=== PATIENT | male | born 1945 | race Caucasian/White ===

== ENCOUNTER → 2016-04-30 | Outpatient (CLI) | payer MEDICARE ==
--- NOTE | 2016-04-30 12:35 | CT ---
EXAMINATION TYPE: CT angio abdominal aorta wo/w con DATE OF EXAM: 04/30/2016 12:08 PM COMPARISON: Ultrasound 04/15/2016 HISTORY: 70-year-old male with abdominal aortic aneurysm, without rupture TECHNIQUE: Contiguous axial scanning of the abdomen and pelvis is performed without and with IV Contr ast, patient injected with 100 ml mL of Omnipaque 350. Coronal/sagittal MIP reconstructions performed . 3-D reconstructions generated on a dedicated independent workstation. CT DLP: 568.00 mGycm Automated exposure control for dose reduction was used. FINDINGS: The heart is upper limits of normal in size without pericardial effusion. There is a tiny hiatal hernia. Some strandy atelectasis or scarring at the lung bases. Or pleural eff usion. Noncontrast and early arterial phase imaging of the liver, gallbladder, adrenal glands, spleen, and p ancreas show no gross abnormality. There is bilateral nephrolithiasis with 2 calculi on the right measuring up to 3 mm and 2 calculi on the left measuring up to 7 mm. 2.5 cm fluid attenuating lesion upper pole right kidney suggestive of a cyst. There is a 4.8 cm and 4.6 cm cyst in the lower pole and lateral midpole of the left kidney, r espectively. Additional hypodensity anterior upper to mid pole left kidney is too small fractured CT characterization and probably represents an additional cyst. No dilated small bowel, free fluid, or free air. No mesenteric or retroperitoneal lymphadenopathy seen. There is moderate stool within the colon with sigmoid diverticulosis but no pericolonic inflammatory change. Circumferential bladder wall thickening. Prostate gland appears surgically absent with multiple surgi carolina clips in the pelvis. No abnormal fluid collection or lymphadenopathy seen. Bones: Nonspecific sclerotic focus posterior left acetabulum. Additional sclerotic focus medial right acetab ulum. No osseous destructive process. Vasculature: There is ectasia of the lower thoracic aorta at 2.8 cm. Moderate atherosclerotic plaque is present th roughout the visualized lower thoracic aorta and abdominal aorta. Celiac axis and SMA are patent as are the bilateral cobos renal arteries. JEANNA is seen opacified. The upper abdominal aorta is mildly aneurysmal at 3.1 cm measured on coronal series. The abdominal aorta itself is markedly tortuous. It measures borderline ectatic at the level of the r enal arteries at 2.5 cm. There is bilobed fusiform dilatation of the infrarenal abdominal aorta as it swings towards the right . The upper aneurysmal dilatation measures 3.5 cm measured on coronal series. Along the superior aspe ct of this fusiform dilatation along the left lateral aspect, there is a focal area of plaque ulcerat ion measuring 7 mm, coronal image 15. The second fusiform dilatation extends to the bifurcation measuring approximately 10 cm long. The ane urysm measures 4.9 cm measured on coronal series. There is prominent nearly circumferential plaque a nd thrombus. The bifurcation is aneurysmal at 3.7 cm measured on coronal series. Mild atherosclerotic calcifications continue into the tortuous iliac arteries. IMPRESSION: 1. Aneurysmal abdominal aorta. There is mild aneurysm of the upper abdominal aorta (3.1 cm) followed by borderline ectasia at the level of the renal arteries (2.5 cm). The infrarenal abdominal aorta is tortuous and swings to the right. 2. This tortuous segment shows bilobed fusiform aneurysm. The upper aneurysm measures up to 3.5 cm. T he lower aneurysm is larger and extends to the bifurcation spanning 10 cm and measuring up to 4.9 cm. Appropriate clinical follow-up and management recommended. 3. Prominent mural based thrombus and plaque within the lower aneurysmal segment. 4. Bilateral nephrolithiasis measuring up to 7 mm and renal cysts measuring up to 4.8 cm. 5. Sigmoid diverticulosis. 6. Status post prostatectomy and lymph node dissection. Circumferential bladder wall thickening could represent residual hypertrophy, cystitis, or posttreatment changes.
== END | disposition home or self-care (01) ==
LOC: RADCTMAIN 10:29
PROVIDERS: ATTEND Internal Medicine
DX: I71.4 Abdominal aortic aneurysm, without rupture (principal); I77.9 Disorder of arteries and arterioles, unspecified; I77.1 Stricture of artery; N20.0 Calculus of kidney; N28.1 Cyst of kidney, acquired; K57.30 Diverticulosis of large intestine without perforation or abscess without bleeding; N32.89 Other specified disorders of bladder; Z90.79 Acquired absence of other genital organ(s)
CPT/HCPCS: 75635; Q9967

== ENCOUNTER → 2016-12-09 | Outpatient (CLI) | payer MEDICARE ==
[2016-12-09 10:39] LABS: Blood Urea Nitrogen 18 mg/dL (9-20); Non-African American GFR(MDRD) >60 (>60 ml/min/1.73 sqM)
--- NOTE | 2016-12-09 11:39 | CT ---
EXAMINATION TYPE: CT angio abdomen pelvis DATE OF EXAM: 12/09/2016 11:20 AM COMPARISON: 04/30/2016 HISTORY: Follow up scan per patient. Known AAA CT DLP: 612.5 mGycm Automated exposure control for dose reduction was used. TECHNIQUE: Performed with IV Contrast, patient injected with 100 mL of Omnipaque 350. FINDINGS: Bibasilar subsegmental dependent atelectasis is noted. Heart is unremarkable without pericardial effu maribel. There is bilateral nephrolithiasis with the largest left renal calculus in the upper pole measuring a pproximately 8 mm and the largest on the right measuring 2 mm in the upper pole. Additional corticall y-based bilateral renal cysts do not demonstrate enhancement and appears stable from the prior exam. Single hepatic lesion near the dome of the diaphragm on series 6 image 11 is too small to accurately characterize. Gallbladder is unremarkable. No evidence of pneumoperitoneum or free fluid. The adrenal glands, spleen, and pancreas are of normal enhancement and morphology. Small nonenhancing area of focal fat is relating to a lipoma seen of the small bowel inferior to the uncinate process of the pancreas. No adenopathy is seen within the abdom en or pelvis. Sigmoid diverticulosis is seen without pericolonic fat stranding. Surgical clips are seen within the prostatic bed. No gross evidence of pelvic sidewall adenopathy. Sclerotic focus within the posterior right acetabulum is unchanged in comparison the prior exam and most likely relate to a bone island ra ther than metastasis. Similar appearing sclerotic lesion in the left acetabulum is also stable. Erskine us structures appear intact. Ectasia of the descending thoracic aorta is redemonstrated measuring up to 3.2 cm, this appears uncha nged in the interim and differences in measurement are accounted for by differences in measurement te chnique and tortuosity of the aorta. Vasculature: There is minimal ostial narrowing by noncalcific atheromatous plaque of the celiac arter y without poststenotic dilatation. SMA and renal arteries are patent although there is some narrowing of the ostia of the left renal artery from mural plaquing. Symmetric renal enhancement is appreciate d. Again the abdominal aorta is markedly tortuous and at the level of the renal arteries again measures 2.5 cm. Circumferential mural plaquing is noted. Again there is bilobed fusiform aneurysmal dilatatio n of the infrarenal abdominal aorta with a PACS towards the right upper quadrant. The superior portio n measures 3.8 cm in transverse dimension on coronal series extending over approximately 5.8 cm. Ante rior focus of plaque ulceration measures approximately 6 mm. This is stable from the prior. The second portion of the fusiform infrarenal abdominal aortic aneurysm extends over approximately 10 cm measuring up to 4.9 cm. There is circumferential extensive mural plaquing and thrombus. This term inates at the aortoiliac bifurcation and there is no involvement of the iliac arteries. Mild atheroma tous calcifications are seen within the tortuous iliac arteries. IMPRESSION: 1. BILOBED FUSIFORM INFRARENAL ABDOMINAL AORTIC ANEURYSM WITH SLIGHT ENLARGEMENT OF THE SUPERIOR SEGM ENT MEASURING UP TO 3.8 CM (PREVIOUSLY MEASURING UP TO 3.5 CM). THERE IS STABILITY OF THE INFERIOR SE GMENT SPANNING 10 CM AND MEASURING UP TO 4.9 CM WITH EXTENSIVE MURAL PLAQUING, THROMBUS AND SINGLE PE NETRATING ATHEROMATOUS ULCER. 2. STABLE MILD ANEURYSM OF THE UPPER ABDOMINAL AORTA WITH OSTIAL NARROWING OF THE CELIAC AXIS AND LEF T RENAL ARTERY. 3. BILATERAL NEPHROLITHIASIS, SIMPLE RENAL CYSTS, AND DIVERTICULOSIS. 4. STATUS POST PROSTATECTOMY WITH LYMPH NODE DISSECTION. NO GROSS ADENOPATHY IN THE ABDOMEN OR PELVIS .
== END | disposition home or self-care (01) ==
LOC: RADCTMAIN 10:04
PROVIDERS: ATTEND Surgery Vascular Surgery
DX: I71.4 Abdominal aortic aneurysm, without rupture (principal); I70.1 Atherosclerosis of renal artery; I77.4 Celiac artery compression syndrome; Z90.79 Acquired absence of other genital organ(s)
CPT/HCPCS: 82565; 84520; 36415; 74174; Q9967

== ENCOUNTER → 2017-08-17 | Outpatient (CLI) | payer MEDICARE | LOC: LABWHC1 14:10 | PROVIDERS: ATTEND Internal Medicine | DX: R19.7 Diarrhea, unspecified (principal) | CPT/HCPCS: 87045; 87046; 87324 ==

== ENCOUNTER → 2017-10-10 | Outpatient (CLI) | payer MEDICARE ==
--- NOTE | 2017-10-10 23:42 | CT ---
"EXAMINATION TYPE: CT angio abdomen pelvis DATE OF EXAM: 10/10/2017 COMPARISON: 12/09/2016 and 04/30/2016 HISTORY: 72-year-old male Abdominal aortic aneurysm without rupture. TECHNIQUE: Contiguous axial scanning of the abdomen and pelvis following administration of 100 ml Iso beto-370 IV contrast. Coronal/sagittal MIP reconstructions performed. 3-D reconstructions generated o n a dedicated workstation. CT DLP: 1916 mGycm Automated exposure control for dose reduction was used. FINDINGS: Vertebral size without pericardial effusion. Some strandy areas of atelectasis are present in the low er lungs. No pleural effusion. Tiny hiatal hernia. A couple of subcentimeter hypodensities within the liver too small for accurate CT characterization, suggestive of cysts. There is some reflux of contrast into the hepatic veins. Gallbladder, adrenal gl ands, spleen, and pancreas show no gross abnormality. Bilateral renal cysts are redemonstrated measuring up to 2.7 cm right upper pole and 6.0 cm left lowe r pole. 8 mm nonobstructive calculus left upper pole and punctate 2 mm calculus posterior left midpol e. No dilated small bowel, free fluid, or free air. No mesenteric or retroperitoneal lymphadenopathy. There is mild to moderate stool burden. No pericolonic inflammatory change. Sigmoid diverticulosis. Small fat-containing left inguinal hernia. Mild circumferential bladder wall thickening is unchanged. Status post prostatectomy with bilateral lymph node dissections pelvis. No abnormal fluid collection in the pelvis. Vasculature: -2.8 cm ectasia lower descending thoracic aorta. -Mild atherosclerotic narrowing at the origin of the celiac axis. -SMA origin is patent. -Mild narrowing at the origin of the left renal artery. There is cobos bilateral renal arteries. -Borderline aneurysm of the abdominal aorta at the level of the renal arteries at 3.0 cm seems to be relatively stable from 12/09/2016. -Below the level of the renal arteries, the aorta swings towards the right and shows aneurysmal dilat ation of 3.9 cm, stable from 12/09/2016 but increased from 04/30/2016 where it measured 3.5 cm. -A second aneurysm of the distal abdominal aorta extends towards the left and extends to the bifurcat ion spanning approximately 10 cm and measuring 5.8 cm in diameter (coronal series), increased from 5. 3 cm on 12/09/2016 and 4.9 cm on 04/30/2016. Prominent circumferential plaque and thrombus within this portion of the aneurysm. Of note, there is some hyperdensity within the anterior portion of the throm bus, refer to series 5 image 45 and series 11 image 45. -No periaortic fat stranding or drooping aorta sign. Bones: Stable sclerotic foci right acetabulum, left ischium likely bone island. No osseous destructive proce ss. IMPRESSION: 1. BILOBED FUSIFORM INFRARENAL AAA. THE MORE SUPERIOR ANEURYSMAL SEGMENT SWINGS TOWARD THE RIGHT CECE URING 3.9 CM IN DIAMETER, INCREASED FROM 3.5 CM. 2. THE INFERIOR ANEURYSMAL SEGMENT SWINGS BACK TOWARDS THE LEFT EXTENDING 10 CM DOWN TO THE BIFURCATI ON, MEASURING 5.8 CM IN DIAMETER, INCREASED FROM 5.3 CM ON 12/09/2016 AND 4.9 CM ON 04/30/2016. 3. OF NOTE, THE INFERIOR ANEURYSMAL SEGMENT HAS PROMINENT CIRCUMFERENTIAL PLAQUE/THROMBUS AND THERE I S INCREASED HYPERDENSITY WITHIN. SOME INTRAPLAQUE HEMORRHAGE IS DIFFICULT TO EXCLUDE. 4. BORDERLINE ANEURYSM OF THE ABDOMINAL AORTA AT THE LEVEL OF THE RENAL ARTERIES IS RELATIVELY SIMILA R AT 3.0 CM. 5. SIGMOID DIVERTICULOSIS, LEFT-SIDED NEPHROLITHIASIS, AND PRIOR PROSTATECTOMY WITH LYMPH NODE DISSEC TION. Impression points #2 and #3 will be sent via [employer]. A [place] level critical message alert has been initiated for Owen Canales MD via the [employer] 36 0 | Critical Results System on 10/10/2017 11:38 PM. This message alert has been sent to Owen Canales MD via the preferences provided by the clinician for the receipt of Radiology Critical Findings. [facility] [id number]."
== END | disposition home or self-care (01) ==
LOC: RADCTMAIN 14:53
PROVIDERS: ATTEND Surgery Vascular Surgery
DX: I71.4 Abdominal aortic aneurysm, without rupture (principal); K57.30 Diverticulosis of large intestine without perforation or abscess without bleeding; N20.0 Calculus of kidney; Z98.890 Other specified postprocedural states
CPT/HCPCS: 82565; 84520; 36415; 74174; Q9967

== ENCOUNTER → 2017-12-28 | Outpatient (CLI) | payer MEDICARE ==
--- NOTE | 2017-12-28 15:33 | CT ---
EXAMINATION TYPE: CT angio abdomen pelvis DATE OF EXAM: 12/28/2017 COMPARISON: 10/10/2017 HISTORY: post op stent evaluation CT DLP: 791.7 mGycm CONTRAST: CTA abdominal aorta with 3-D reconstruction is performed without Oral Contrast and with IV Contrast, patient injected with 100mL mL of Isovue 370. Contrast CTA of the abdominal aorta was performed from the lung apex through the base of the pelvis. 3-D reconstruction imaging obtained at a separate workstation. CONTRAST CT ABDOMEN AND PELVIS ABDOMINAL AORTA: Interval placement of aortoiliac stent graft. Infrarenal abdominal aortic aneurysm m easures 6.3 cm in greatest transverse dimension by 5.9 cm in AP dimension versus 6.2 x 5.6 cm preproc edure. Small focal areas of hyperdensity are seen on the noncontrast portion of the study within the aneurysm which do not increase on the postcontrast portion of the examination to suggest endoleak. Il iac vessels are of normal caliber. There is left lower renal artery stents. Renal arteries perfuse no rmally. Branch vessels are patent. LIVER/GB- No significant abnormality is seen. PANCREAS- No significant abnormality is seen. SPLEEN- No significant abnormality is seen. ADRENALS- No significant abnormality is seen. KIDNEYS/BLADDER-renal cystic changes are identified. BOWEL- No Significant abnormality GENITAL ORGANS: No gross abnormality seen. LYMPH NODES- No greater than 1cm abdominal or pelvic lymph nodes areappreciated. OSSEOUS STRUCTURES- No significant abnormality is seen. OTHER-left inguinal fat-containing hernia identified. IMPRESSION- 1. Aortoiliac stent graft placement without evidence for endovascular leak at this time.
== END ==
LOC: RADCTMAIN 09:54
PROVIDERS: ATTEND Surgery
DX: Z95.828 Presence of other vascular implants and grafts (principal)
CPT/HCPCS: 82565; 84520; 36415; 74174; Q9967

== ENCOUNTER 2018-01-01 10:47 | Emergency (ER) | payer MEDICARE ==
[2018-01-01 11:03] VITALS: BP 155/87; PULSE 66; RESP 18; TEMP 98.4
--- NOTE | 2018-01-01 11:35 | ED ---
General Adult HPI - General Chief complaint: Back Pain/Injury Stated complaint: Blocked bowel Time Seen by Provider: 01/01/18 11:04 Source: patient, family, RN notes reviewed, old records reviewed Mode of arrival: ambulatory Limitations: no limitations - History of Present Illness Initial comments: Chief complaint and history of present illness this is a 72-year-old male here with family. The patient reports she has not had a bowel movement for 4 days. Patient reports he has had occasional problems such as this in the past and once constipating us has low back discomfort. Denies any other problems. No change in appetite. No trouble urinating. - Related Data Home Medications Medication Instructions Recorded Confirmed Aspirin EC [Ecotrin Low Dose] 81 mg PO DAILY 01/01/18 01/01/18 Atenolol [Tenormin] 12.5 mg PO DAILY 01/01/18 01/01/18 Atorvastatin [Lipitor] 40 mg PO HS 01/01/18 01/01/18 Captopril [Capoten] 12.5 mg PO BID 01/01/18 01/01/18 Clopidogrel [Plavix] 75 mg PO DAILY 01/01/18 01/01/18 Isosorbide Mononitrate [Ismo] 10 mg PO BID 01/01/18 01/01/18 Multivit-Min/FA/Lycopen/Lutein 1 tab PO DAILY@1200 01/01/18 01/01/18 [Centrum Silver Tablet] Sennosides/Docusate Sodium [Kathie 1 tab PO DAILY 01/01/18 01/01/18 Colace] Ubidecarenone [Co Q-10] 100 mg PO DAILY@1200 01/01/18 01/01/18 Allergies Allergy/AdvReac Type Severity Reaction Status Date / Time codeine Allergy Chest Pain Verified 01/01/18 11:25 fentanyl Allergy Rash/Hives Verified 01/01/18 11:25 Review of Systems ROS Statement: Those systems with pertinent positive or pertinent negative responses have been documented in the HPI. Review of systems no other complaints other than constipation for 4 days. All systems were reviewed. Past medical problems significant for prostate cancer, previous NM. Surgeries include having had 2 stents placed and prostate surgery. Patient also had approximate 6 weeks ago aortic stenting of his lower abdominal aortic aneurysm. The patient's family history unknown as the patient is a foster child. Patient has ALLERGIES to codeine and fentanyl. Patient denies alcohol use. Patient does smoke strongly encouraged to stop ROS Other: All systems not noted in ROS Statement are negative. Past Medical History Past Medical History: Cancer, Myocardial Infarction (NM) Additional Past Medical History / Comment(s): prostate cancer, aortic aneurysm repair History of Any Multi-Drug Resistant Organisms: None Reported Past Surgical History: Heart Catheterization With Stent, Prostate Surgery Past Psychological History: No Psychological Hx Reported Smoking Status: Current every day smoker Past Alcohol Use History: None Reported Past Drug Use History: None Reported General Exam - General Exam Comments Initial Comments: General: The patient is awake and alert, in no distress, and does not appear acutely ill. Chief complaint is no bowel movement for 4 days. Vital signs show temperature 98.4 pulse 66 respiratory rate 18 pulse ox 90% room air blood pressure 155/87 Eye: Pupils are equal, round and reactive to light, extra-ocular movements are intact ; there is normal conjunctiva bilaterally. No signs of icterus. Ears, nose, mouth and throat: There are moist mucous membranes. Neck: The neck is supple, there is no tenderness. Cardiovascular: There is a regular rate and rhythm. No murmur, rub or gallop is appreciated. Respiratory: Lungs are clear to auscultation, respirations are non-labored, breath sounds are equal. No wheezes, stridor, rales, or rhonchi. Gastrointestinal: Soft, non-distended, non-tender abdomen without masses or organomegaly noted. There is no rebound or guarding present. No CVA tenderness. Bowel sounds are unremarkable. Small left inguinal hernia, mild bulge with coughing otherwise no discomfort. Back: Low back discomfort. Patient reports she often gets low back pain when he is constipated.. Musculoskeletal: Full range of motion upper and lower extremities. The patient does report that he has some numbness to the fingertips of his left hand. His points out that the surgery for the placement of the stent went through the left arm for an extended period of time and that may have been the cause of the fingertip numbness. Neurological: No focal or lateralizing findings noted none complained of. Other than the fingertips as noted above. Skin: Skin is warm and dry and no rashes or lesions are noted. Psychiatric: Cooperative, appropriate mood & affect, Limitations: no limitations Course Vital Signs 01/01/18 10:58 Temperature 98.4 F Pulse Rate 66 Respiratory 18 Rate Blood Pressure 155/87 O2 Sat by Pulse 98 Oximetry Medical Decision Making - Medical Decision Making Medical decision making; this is a 72-year-old male here with a complaint of constipation for 4 days. X-ray of the abdomen was done and reviewed by radiologist. His findings are; there is no orbital iliac stents graft in place. There has been extensive pelvic surgery. There is a left renal stent in place. Lung bases are clear. Within the abdomen, the abdomen gas pattern is within normal limits. There is no evidence of obstruction or free air. No unusual calcifications are seen. Impression no acute intra-abdominal abnormality. #2 postsurgical change. The patient be given a Therevac suppository. The patient did have a bowel movement pathologic gas states she is feeling much better. The plan for the patient to continue with increase fluids at home use over-the- counter medications including Senokot continue having bowel movements. Advised to follow-up with family physician or return emergency room as needed Disposition Clinical Impression: Constipation by delayed colonic transit Disposition: HOME SELF-CARE Condition: Fair Instructions: Constipation (ED), High Fiber Diet (ED), Fleet Enema (ED) Additional Instructions: Drink adequate fluids. Eat adequate fiber. Use Senokot and [id number] Colace as needed follow-up with family physician return emergency room as needed Is patient prescribed a controlled substance at d/c from ED?: No Referrals: Gerardo Wilson MD [Primary Care Provider] - 1-2 days Time of Disposition: 13:59
--- NOTE | 2018-01-01 12:41 | XR ---
EXAMINATION TYPE: XR abdomen complete w decub , 4 VIEWS DATE OF EXAM ORDERED: 01/01/2018 HISTORY: No BM ?4 days, recent aortic stenting. COMPARISON: None. FINDINGS: There is an orbital iliac stent graft in place. There has been extensive pelvic surgery. T here is a left renal stent in place. The lung bases are clear. Within the abdomen, the abdominal gas pattern is within normal limits. There is no evidence of obstru ction or free air. No unusual calcifications are seen. IMPRESSION: 1. NO ACUTE INTRA-ABDOMINAL ABNORMALITY. 2. POSTSURGICAL CHANGE.
[2018-01-01] MEDS ORDERED: DOCUSATE 283 MG/5 ML ENEMA RECTAL STA (12:55)
== END 2018-01-01 14:09 | disposition home or self-care (01) ==
LOC: EC 10:47
DX: K59.01 Slow transit constipation (principal); K40.90 Unilateral inguinal hernia, without obstruction or gangrene, not specified as recurrent; R20.0 Anesthesia of skin; I25.2 Old myocardial infarction; F17.200 Nicotine dependence, unspecified, uncomplicated; Z88.5 Allergy status to narcotic agent; Z79.02 Long term (current) use of antithrombotics/antiplatelets; Z79.82 Long term (current) use of aspirin; Z79.899 Other long term (current) drug therapy; Z85.46 Personal history of malignant neoplasm of prostate; Z86.79 Personal history of other diseases of the circulatory system; Z95.5 Presence of coronary angioplasty implant and graft; Z98.890 Other specified postprocedural states; Z96.0 Presence of urogenital implants
CPT/HCPCS: 74021; 99284

== ENCOUNTER 2020-02-07 11:40 | Inpatient (IN) | payer MEDICARE ==
[2020-02-07] MEDS ORDERED: HYDROmorphone 0.5 MG/0.5 ML SYRINGE IVP STA ×3 (11:49→14:08)
[2020-02-07] MEDS ORDERED: SODIUM CHLORIDE 0.9% 1,000 ML IV STA (11:49)
[2020-02-07 12:22] LABS: Basophils # (A) 0.1 k/uL (0-0.2); Basophils % (A) 0 %; Eosinophils # (A) 0.2 k/uL (0-0.7); Eosinophils % (A) 1 %; HCT 50.6 % (39.0-53.0); HGB 16.2 gm/dL (13.0-17.5); Lymphocytes # (A) 1.6 k/uL (1.0-4.8); Lymphocytes % (A) 8 %; MCH 31.2 pg (25.0-35.0); MCHC 32.1 g/dL (31.0-37.0); MCV 97.2 fL (80.0-100.0); Monocytes # (A) 0.8 k/uL (0-1.0); Monocytes % (A) 4 %; Neutrophils # (A) 17.6 k/uL (1.3-7.7); Neutrophils % (A) 86 %; Platelet Count 177 k/uL (150-450); WBC 20.5 k/uL (3.8-10.6)
--- NOTE | 2020-02-07 12:24 | ED ---
Abdominal Pain HPI - General Source: patient, RN notes reviewed Mode of arrival: EMS Limitations: no limitations <Carlos Salgado - Last Filed: 02/07/20 14:57> <Mary Yepez - Last Filed: 02/13/20 01:01> - General Chief Complaint: Abdominal Pain Stated Complaint: Abdominal pain Time Seen by Provider: 02/07/20 11:42 - History of Present Illness Initial Comments: 74-year-old male presents emergency Department chief complaint of lower abdominal pain, left groin pain. Patient states that it started around 7 AM th is morning. Patient states that he does have a history of aortic iliac repair on the left by Dr. Gerardo. Patient states that the pain does not radiate to his back. No chest pain or shortness breath he does have a history of hypertension. Denies any prior kidney disease. Patient states that he has no discoloration or symptoms out and his lower leg. Patient states the pain is rated by his groin but denies any testicular pain no dysuria no hematuria no diarrhea no constipation. (Carlos Salgado) - Related Data Home Medications Medication Instructions Recorded Confirmed Atorvastatin [Lipitor] 40 mg PO AC-SUPPER 01/01/18 02/07/20 Isosorbide Mononitrate [Ismo] 10 mg PO AC-BID@0530,1730 01/01/18 02/07/20 Multivit-Min/FA/Lycopen/Lutein 1 tab PO DAILY@1200 01/01/18 02/07/20 [Centrum Silver Tablet] Sennosides/Docusate Sodium [Kathie 1 tab PO DAILY@0530 01/01/18 02/07/20 Colace] Ubidecarenone [Co Q-10] 200 mg PO DAILY@1200 01/01/18 02/07/20 atenoloL [Tenormin] 12.5 mg PO DAILY@0530 01/01/18 02/07/20 Aspirin EC [Ecotrin] 325 mg PO DAILY@0530 02/07/20 02/07/20 Nitroglycerin Sl Tabs [Nitrostat] 0.4 mg SL Q5M PRN 02/07/20 02/07/20 Previous Rx's Medication Instructions Recorded Amoxic-Pot Clav 500-125 mg 1 tab PO Q12HR #10 tab 02/11/20 [Augmentin 500-125 mg] amLODIPine [Norvasc] 10 mg PO DAILY #30 tablet 02/11/20 Allergies Allergy/AdvReac Type Severity Reaction Status Date / Time clopidogrel [From Plavix] Allergy Rash/Hives Verified 02/07/20 15:31 codeine Allergy Chest Pain Verified 02/07/20 15:31 fentanyl Allergy Rash/Hives Verified 02/07/20 15:31 Review of Systems ROS Other: All systems not noted in ROS Statement are negative. <Carlos Salgado - Last Filed: 02/07/20 14:57> ROS Other: All systems not noted in ROS Statement are negative. <Mary Yepez - Last Filed: 02/13/20 01:01> ROS Statement: Those systems with pertinent positive or pertinent negative responses have been documented in the HPI. Past Medical History Past Medical History: Cancer, Myocardial Infarction ([place]) Additional Past Medical History / Comment(s): prostate cancer, aortic aneurysm repair History of Any Multi-Drug Resistant Organisms: None Reported Past Surgical History: Heart Catheterization With Stent, Prostate Surgery Past Psychological History: No Psychological Hx Reported Smoking Status: Current every day smoker Past Alcohol Use History: None Reported Past Drug Use History: None Reported <Carlos Salgado - Last Filed: 02/07/20 14:57> General Exam Limitations: no limitations General appearance: alert, in no apparent distress Head exam: Present: atraumatic, normocephalic, normal inspection Eye exam: Present: normal appearance, PERRL, EOMI. Absent: scleral icterus, conjunctival injection, periorbital swelling ENT exam: Present: normal exam, normal oropharynx, mucous membranes moist Neck exam: Present: normal inspection, full ROM. Absent: tenderness, meningismus, lymphadenopathy Respiratory exam: Present: normal lung sounds bilaterally. Absent: respiratory distress, wheezes, rales, rhonchi, stridor Cardiovascular Exam: Present: regular rate, normal rhythm, normal heart sounds. Absent: systolic murmur, diastolic murmur, rubs, gallop, clicks GI/Abdominal exam: Present: soft, tenderness (Left groin), normal bowel sounds. Absent: distended, guarding, rebound, rigid Skin exam: Present: warm, dry, intact, normal color. Absent: rash <Carlos Salgado - Last Filed: 02/07/20 14:57> Course Vital Signs 02/07/20 02/07/20 02/07/20 11:55 13:06 13:46 Temperature 97.7 F Pulse Rate 64 70 66 Respiratory 18 18 18 Rate Blood Pressure 164/83 164/84 155/78 O2 Sat by Pulse 97 97 95 Oximetry 02/07/20 02/07/20 02/07/20 16:19 19:30 21:11 Temperature Pulse Rate 72 57 L 63 Respiratory 18 18 Rate Blood Pressure 145/58 152/59 135/92 O2 Sat by Pulse 95 94 L 93 L Oximetry 02/07/20 22:55 Temperature 97.7 F Pulse Rate 63 Respiratory 18 Rate Blood Pressure 135/92 O2 Sat by Pulse 93 L Oximetry Medical Decision Making - Lab Data Result diagrams: 02/07/20 12:06 02/07/20 12:00 <Carlos Salgado - Last Filed: 02/07/20 14:57> - Lab Data Result diagrams: 02/12/20 06:11 02/12/20 06:11 <Mary Yepez - Last Filed: 02/13/20 01:01> - Medical Decision Making 74-year-old male presented for left groin pain. There was concern as he informed me of possible aneurysm around his graft. CTA was obtained immediately ordered upon arrival. There does show evidence of a large inguinal hernia concern for incarceration. Patient hernia was attempted to reduce with minimal change in patient's symptoms. There is no definite leak and felt less likely at this point after CT. Pulses lower extremity equal bilaterally. Patient's pain is localized only in the groin. Patient's case discussed with Dr. Covington who recommends the patient to be admitted to medicine with consult to him and vascular surgery. Patient will be kept nothing by mouth, pain medication, antiemetics. Patient was started on antibiotics given leukocytosis. (Carlos Salgado) I was available for consultation in the emergency department. The history and physical exam were done by the midlevel provider. I was consulted for this patients care. I reviewed the case with the midlevel provider and based on their presentation of the patient, I agree with the assessment, medical decision making and plan of care as documented. Chart was dictated using [employer] dictation software. Attempts were made to correct any dictation errors however some typographical errors may persist. Patient was seen during a national state of emergency due to the Covid-19 pandemic. (Mary Yepez) - Lab Data Lab Results 02/07/20 02/07/20 02/07/20 Range/Units 12:00 12:00 12:00 WBC (3.8-10.6) k/uL RBC (4.30-5.90) m/uL Hgb (13.0-17.5) gm/dL Hct (39.0-53.0) % MCV (80.0-100.0) fL MCH (25.0-35.0) pg MCHC (31.0-37.0) g/dL RDW (11.5-15.5) % Plt Count (150-450) k/uL Neutrophils % % Lymphocytes % % Monocytes % % Eosinophils % % Basophils % % Neutrophils # (1.3-7.7) k/uL Lymphocytes # (1.0-4.8) k/uL Monocytes # (0-1.0) k/uL Eosinophils # (0-0.7) k/uL Basophils # (0-0.2) k/uL PT 10.0 (9.0-12.0) sec INR 1.0 (<1.2) APTT 23.0 (22.0-30.0) sec Sodium 138 (137-145) mmol/L Potassium 4.2 (3.5-5.1) mmol/L Chloride 108 H (98-107) mmol/L Carbon Dioxide 25 (22-30) mmol/L Anion Gap 5 mmol/L BUN 21 H (9-20) mg/dL Creatinine 1.26 H (0.66-1.25) mg/dL Est GFR (CKD-EPI)AfAm 65 (>60 ml/min/1.73 sqM) Est GFR (CKD-EPI)NonAf 56 (>60 ml/min/1.73 sqM) Glucose 161 H (74-99) mg/dL Plasma Lactic Acid Topher 2.0 (0.7-2.0) mmol/L Calcium 8.9 (8.4-10.2) mg/dL Total Bilirubin 0.4 (0.2-1.3) mg/dL AST 25 (17-59) U/L ALT 17 (4-49) U/L Alkaline Phosphatase 67 (38-126) U/L Creatine Kinase 71 (55-170) U/L Troponin I (0.000-0.034) ng/mL Total Protein 6.5 (6.3-8.2) g/dL Albumin 3.8 (3.5-5.0) g/dL Amylase 105 (30-110) U/L Lipase 182 (23-300) U/L Urine Color Urine Appearance (Clear) Urine pH (5.0-8.0) Ur Specific Oakes (1.001-1.035) Urine Protein (Negative) Urine Glucose (UA) (Negative) Urine Ketones (Negative) Urine Blood (Negative) Urine Nitrite (Negative) Urine Bilirubin (Negative) Urine Urobilinogen (<2.0) mg/dL Ur Leukocyte Esterase (Negative) Urine RBC (0-5) /hpf Urine WBC (0-5) /hpf Ur Squamous Epith Cells (0-4) /hpf Amorphous Sediment (None) /hpf Blood Type Blood Type Confirm Blood Type Recheck Bld Type Recheck Status Antibody Screen Spec Expiration Date 02/07/20 02/07/20 02/07/20 Range/Units 12:00 12:00 12:05 WBC (3.8-10.6) k/uL RBC (4.30-5.90) m/uL Hgb (13.0-17.5) gm/dL Hct (39.0-53.0) % MCV (80.0-100.0) fL MCH (25.0-35.0) pg MCHC (31.0-37.0) g/dL RDW (11.5-15.5) % Plt Count (150-450) k/uL Neutrophils % % Lymphocytes % % Monocytes % % Eosinophils % % Basophils % % Neutrophils # (1.3-7.7) k/uL Lymphocytes # (1.0-4.8) k/uL Monocytes # (0-1.0) k/uL Eosinophils # (0-0.7) k/uL Basophils # (0-0.2) k/uL PT (9.0-12.0) sec INR (<1.2) APTT (22.0-30.0) sec Sodium (137-145) mmol/L Potassium (3.5-5.1) mmol/L Chloride (98-107) mmol/L Carbon Dioxide (22-30) mmol/L Anion Gap mmol/L BUN (9-20) mg/dL Creatinine (0.66-1.25) mg/dL Est GFR (CKD-EPI)AfAm (>60 ml/min/1.73 sqM) Est GFR (CKD-EPI)NonAf (>60 ml/min/1.73 sqM) Glucose (74-99) mg/dL Plasma Lactic Acid Topher (0.7-2.0) mmol/L Calcium (8.4-10.2) mg/dL Total Bilirubin (0.2-1.3) mg/dL AST (17-59) U/L ALT (4-49) U/L Alkaline Phosphatase (38-126) U/L Creatine Kinase (55-170) U/L Troponin I <0.012 (0.000-0.034) ng/mL Total Protein (6.3-8.2) g/dL Albumin (3.5-5.0) g/dL Amylase (30-110) U/L Lipase (23-300) U/L Urine Color Urine Appearance (Clear) Urine pH (5.0-8.0) Ur Specific Oakes (1.001-1.035) Urine Protein (Negative) Urine Glucose (UA) (Negative) Urine Ketones (Negative) Urine Blood (Negative) Urine Nitrite (Negative) Urine Bilirubin (Negative) Urine Urobilinogen (<2.0) mg/dL Ur Leukocyte Esterase (Negative) Urine RBC (0-5) /hpf Urine WBC (0-5) /hpf Ur Squamous Epith Cells (0-4) /hpf Amorphous Sediment (None) /hpf Blood Type B Positive Blood Type Confirm B Positive Blood Type Recheck No Previous Record Bld Type Recheck Status CABO Indicated Antibody Screen NEGATIVE Spec Expiration Date 02/10/2020 - 229902/07/20 02/07/20 Range/Units 12:06 12:27 WBC 20.5 H (3.8-10.6) k/uL RBC 5.20 (4.30-5.90) m/uL Hgb 16.2 (13.0-17.5) gm/dL Hct 50.6 (39.0-53.0) % MCV 97.2 (80.0-100.0) fL MCH 31.2 (25.0-35.0) pg MCHC 32.1 (31.0-37.0) g/dL RDW 14.0 (11.5-15.5) % Plt Count 177 (150-450) k/uL Neutrophils % 86 % Lymphocytes % 8 % Monocytes % 4 % Eosinophils % 1 % Basophils % 0 % Neutrophils # 17.6 H (1.3-7.7) k/uL Lymphocytes # 1.6 (1.0-4.8) k/uL Monocytes # 0.8 (0-1.0) k/uL Eosinophils # 0.2 (0-0.7) k/uL Basophils # 0.1 (0-0.2) k/uL PT (9.0-12.0) sec INR (<1.2) APTT (22.0-30.0) sec Sodium (137-145) mmol/L Potassium (3.5-5.1) mmol/L Chloride (98-107) mmol/L Carbon Dioxide (22-30) mmol/L Anion Gap mmol/L BUN (9-20) mg/dL Creatinine (0.66-1.25) mg/dL Est GFR (CKD-EPI)AfAm (>60 ml/min/1.73 sqM) Est GFR (CKD-EPI)NonAf (>60 ml/min/1.73 sqM) Glucose (74-99) mg/dL Plasma Lactic Acid Topher (0.7-2.0) mmol/L Calcium (8.4-10.2) mg/dL Total Bilirubin (0.2-1.3) mg/dL AST (17-59) U/L ALT (4-49) U/L Alkaline Phosphatase (38-126) U/L Creatine Kinase (55-170) U/L Troponin I (0.000-0.034) ng/mL Total Protein (6.3-8.2) g/dL Albumin (3.5-5.0) g/dL Amylase (30-110) U/L Lipase (23-300) U/L Urine Color Light Yellow Urine Appearance Cloudy (Clear) Urine pH 7.5 (5.0-8.0) Ur Specific Oakes 1.012 (1.001-1.035) Urine Protein Trace H (Negative) Urine Glucose (UA) Negative (Negative) Urine Ketones Negative (Negative) Urine Blood Negative (Negative) Urine Nitrite Negative (Negative) Urine Bilirubin Negative (Negative) Urine Urobilinogen <2.0 (<2.0) mg/dL Ur Leukocyte Esterase Negative (Negative) Urine RBC 1 (0-5) /hpf Urine WBC 2 (0-5) /hpf Ur Squamous Epith Cells <1 (0-4) /hpf Amorphous Sediment Moderate H (None) /hpf Blood Type Blood Type Confirm Blood Type Recheck Bld Type Recheck Status Antibody Screen Spec Expiration Date Disposition <Carlos Salgado - Last Filed: 02/07/20 14:57> <Mary Yepez - Last Filed: 02/13/20 01:01> Clinical Impression: Left inguinal hernia, Leukocytosis, Intractable pain, Hx of [id number] bypass Disposition: ADMITTED IP TO THIS HOSP Condition: Stable
[2020-02-07 12:32] LABS: Potassium 4.2 mmol/L (3.5-5.1)
[2020-02-07 12:33] LABS: Albumin 3.8 g/dL (3.5-5.0); Calcium 8.9 mg/dL (8.4-10.2); Total Bilirubin 0.4 mg/dL (0.2-1.3); Total Protein 6.5 g/dL (6.3-8.2)
[2020-02-07] MEDS ORDERED: ONDANSETRON 4 MG/2 ML VIAL IVP STA (13:01)
[2020-02-07 13:09] LABS: Amorphous Sediment,Urine Moderate /hpf; Appearance,Urine Cloudy (Clear); Bilirubin,Urine Negative (Negative); Blood,Urine Negative (Negative); Color,Urine Light Yellow; Glucose,Urine (UA) Negative (Negative); Ketones,Urine Negative (Negative); Leukocyte Esterase,Urine Negative (Negative); Nitrite,Urine Negative (Negative); PH, Urine 7.5 (5.0-8.0); Protein,Urine Trace (Negative); RBC,Urine 1 /hpf (0-5); Specific Gravity,Urine 1.012 (1.001-1.035); Squamous Epithelial Cell,Urine <1 /hpf (0-4); Urobilinogen,Urine <2.0 mg/dL (<2.0); WBC,Urine 2 /hpf (0-5)
[2020-02-07] MEDS ORDERED: diphenhydrAMINE 50 MG/ML 1 ML VIAL IVP STA (14:13)
[2020-02-07] MEDS ORDERED: METOCLOPRAMIDE 5 MG/ML 2 ML VIAL IVP STA (14:13)
--- NOTE | 2020-02-07 14:34 | CT ---
EXAMINATION TYPE: CT angio abd aorta w/Runoff DATE OF EXAM: 02/07/2020 COMPARISON: 12/28/2017 HISTORY: 74-year-old male abdominal and groin pain, history of aneurysm repair TECHNIQUE: Contiguous axial scanning of the abdomen and pelvis with bilateral lower extremity runoff performed without and with IV Contrast, patient injected with 100 mL of Isovue 370. Coronal/sagittal MIP reconstructions performed. 3-D reconstructions generated on a dedicated independent workstation. CT DLP: 2291.5 mGycm Automated exposure control for dose reduction was used. FINDINGS: Heart normal size without pericardial effusion. Hazy bibasilar areas of opacity, likely atelectasis. No pleural effusion. 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 Evidence of abdominal biiliac endovascular stent graft repair. This seems to be a severe stenosis at the level of the left renal artery stent. No flow is seen to the left kidney. Left renal cyst measuring 4.9 cm along with nonobstructive 7 mm calculus. 2.8 cm cyst upper pole righ t kidney. Tiny subcentimeter hypodensities in the liver too small for accurate CT characterization, likely tiny cysts. Portal venous system is patent. No biliary ductal dilatation. Gallbladder, adrenal glands, spleen, and pancreas appear within normal limits. No dilated small bowel, free fluid, free air. No mesenteric or retroperitoneal lymphadenopathy. Mild scattered stool. Sigmoid diverticulosis. No pericolonic inflammatory change. Pelvis: Circumferential bladder wall thickening could represent chronic bladder wall hypertrophy, posttreatme nt change, or cystitis. Clinically correlate. Surgical clips within the pelvis, suspect prior prostat ectomy. Interval enlargement of an indirect left inguinal hernia containing fat currently measuring 12.5 x 5. 3 cm and extending to abut the upper margin of the left testicle. There is some mass effect with flat tening of the inguinal ring suggesting possible incarceration. No abnormal inflammation or fluid. VASCULATURE: The [place] sac measures up to 5.9 cm AP by 5.7 cm wide open (not significantly changed from 12/28/2017 where it measured 5.8 cm AP and 5.6 cm wide. However, as compared to 12/28/2017, there has been enlar gement at the right lateral distal landing zone so that the opacified right common iliac artery is bu lging into the [place] sac measuring up to 2.5 cm wide. This is a new finding, refer to coronal image 50 series 702. Unable to exclude a type IB endoleak. Right: Scattered mild atherosclerotic calcifications, and femoral artery. Mild to moderate focal narrowing m id right SFA, axial image 109 of series 601. Popliteal artery is patent as is the trifurcation. There is runoff via the anterior tibial artery. Posterior tibial and peroneal arteries are seen to th e mid leg level. Left: Scattered mild atherosclerotic calcifications distal left SFA. Popliteal artery is patent. Anterior t ibial artery shows runoff into the foot and peroneal artery becomes diminutive at the distal third le g level but is seen to the ankle. There is no visualization of the posterior tibial artery. Bones: Mild degenerative change at the hips. No osseous destructive process. IMPRESSION: 1. COMPARED TO 12/28/2017, THERE IS INCREASING SIZE OF A NOW MODERATE SIZED FAT-CONTAINING LEFT IND IRECT INGUINAL HERNIA MEASURING 12.5 X 5.3 CM WHICH EXTENDS DOWN INTO THE SCROTAL SAC. THERE IS MASS EFFECT ONTO THE INGUINAL RING THAT MAY REFLECT INCARCERATION. NO INFLAMMATORY CHANGES OR FLUID TO SUG GEST STRANGULATION. 2. ABDOMINAL BIILIAC ENDOVASCULAR STENT GRAFT. THE T[place]A SAC IS RELATIVELY SIMILAR IN SIZE AT 5.9 X 5.7 CM (VERSUS 5.8 X 5.6 CM IN 2018). 3. HOWEVER, THERE HAS BEEN SOME ENLARGEMENT ALONG THE RIGHT LATERAL DISTAL LANDING ZONE SO THAT THE O PACIFIED RIGHT COMMON ILIAC ARTERY IS BULGING INTO THE [place] SAC AND NOW DILATED AT 2.5 CM WIDE. THE FINDING IS NEW FROM 2018. UNABLE TO EXCLUDE A TYPE IB ENDOLEAK. 4. A LEFT RENAL ARTERY STENT IS PRESENT. HOWEVER, THERE IS NO LONGER ANY ARTERIAL FLOW BEYOND THE MARIELA NT. FINDINGS SUGGEST A SUBTOTAL TO COMPLETE LEFT RENAL ARTERY OCCLUSION GIVEN THE NONOPACIFIED LEFT K IDNEY. 5. BILATERAL RUNOFF VIA THE ANTERIOR TIBIAL ARTERIES. ON THE LEFT, THERE IS OCCLUSION OF THE POSTERIO R TIBIAL ARTERY AT ITS ORIGIN.
[2020-02-07] MEDS ORDERED: PIPERACILLIN-TAZOBACTAM 3.375 GM in SODIUM CHLORIDE 0.9% 100 ML IVPB STA (14:56)
[2020-02-07] MEDS ORDERED: ONDANSETRON 4 MG/2 ML VIAL IVP PRN (15:09)
[2020-02-07] MEDS ORDERED: NALOXONE 0.4 MG/ML 1 ML VIAL IV PRN (15:09)
[2020-02-07] MEDS: SODIUM CHLORIDE 0.9% 1,000 ML IV SCH (16:19)
--- NOTE | 2020-02-07 17:11 | P.HPIM ---
History of Present Illness H&P Date: 02/07/20 Chief Complaint: Abdominal pain This is a 74-year-old male with past medical history significant for an old left-sided inguinal hernia that presented to the emergency room with worsening abdominal pain and discomfort. Patient said that his symptoms started at 9 AM this morning and is being getting progressively worse. He described his pain as sharp and mostly in the lower and left abdomen. This was associated with nausea and 3 episodes of vomiting of bilious material. Patient reported that he had a normal bowel movement this morning that since then he has been feeling more bloated than is not passing gas. He denies any fevers or chills. No flulike symptoms. No other complaints otherwise. Patient was evaluated in the ER and will be admitted to the hospital for further management of his medical problems noted below. At the time of my evaluation, patient was rating his pain as 4 out of 10. Review of Systems Review of system: 14 points review of systems were obtained and were negative except to what were mentioned in the HPI. Past Medical History Past Medical History: Cancer, Myocardial Infarction ([place]) Additional Past Medical History / Comment(s): prostate cancer, aortic aneurysm repair History of Any Multi-Drug Resistant Organisms: None Reported Past Surgical History: Heart Catheterization With Stent, Prostate Surgery Past Psychological History: No Psychological Hx Reported Smoking Status: Current every day smoker Past Alcohol Use History: None Reported Past Drug Use History: None Reported Medications and Allergies Home Medications Medication Instructions Recorded Confirmed Type Atorvastatin [Lipitor] 40 mg PO AC-SUPPER 01/01/18 02/07/20 History Isosorbide Mononitrate [Ismo] 10 mg PO AC-BID@0530,1730 01/01/18 02/07/20 History Multivit-Min/FA/Lycopen/Lutein 1 tab PO DAILY@1200 01/01/18 02/07/20 History [Centrum Silver Tablet] Sennosides/Docusate Sodium [Kathie 1 tab PO DAILY@0530 01/01/18 02/07/20 History Colace] Ubidecarenone [Co Q-10] 200 mg PO DAILY@1200 01/01/18 02/07/20 History atenoloL [Tenormin] 12.5 mg PO DAILY@0530 01/01/18 02/07/20 History captopriL [Capoten] 25 mg PO BID@0530,2100 01/01/18 02/07/20 History Aspirin EC [Ecotrin] 325 mg PO DAILY@0530 02/07/20 02/07/20 History Nitroglycerin Sl Tabs [Nitrostat] 0.4 mg SL Q5M PRN 02/07/20 02/07/20 History amLODIPine [Norvasc] 5 mg PO AC-SUPPER 02/07/20 02/07/20 History Allergies Allergy/AdvReac Type Severity Reaction Status Date / Time clopidogrel [From Plavix] Allergy Rash/Hives Verified 02/07/20 15:31 codeine Allergy Chest Pain Verified 02/07/20 15:31 fentanyl Allergy Rash/Hives Verified 02/07/20 15:31 Physical Exam Vitals: Vital Signs Temp Pulse Resp BP Pulse Ox 02/07/20 16:19 72 145/58 95 02/07/20 13:46 66 18 155/78 95 02/07/20 13:06 70 18 164/84 97 02/07/20 11:55 97.7 F 64 18 164/83 97 Intake and Output 02/07/20 02/07/20 02/07/20 06:59 14:59 22:59 Other: Weight 72.575 kg General: The patient is awake and alert, in no distress Eye: there is normal conjunctiva bilaterally. Neck: The neck is supple, there is no JVD. Cardiovascular: Normal S1-S2, no S3-S4, no murmurs. Respiratory: Lungs clear to auscultation bilaterally Gastrointestinal: Abdomen is soft, slightly distended with no significant tenderness. There is a reducible left inguinal hernia Musculoskeletal: There is no pedal edema. Neurological:. Speech is normal. Skin: Skin is warm and dry Results CBC & Chem 7: 02/07/20 12:06 02/07/20 12:00 Labs: Abnormal Lab Results - Last 24 Hours (Table) 02/07/20 02/07/20 02/07/20 Range/Units 12:00 12:06 12:27 WBC 20.5 H (3.8-10.6) k/uL Neutrophils # 17.6 H (1.3-7.7) k/uL Chloride 108 H (98-107) mmol/L BUN 21 H (9-20) mg/dL Creatinine 1.26 H (0.66-1.25) mg/dL Glucose 161 H (74-99) mg/dL Urine Protein Trace H (Negative) Amorphous Sediment Moderate H (None) /hpf Assessment and Plan Assessment: This is a 74-year-old male who presented to the emergency room with worsening abdominal pain. Patient was evaluated in the ER and currently admitted to the hospital for further management of his medical problems noted below. 1. Left inguinal hernia, moderate size, with suspected incarceration noted on computed tomography scan of the abdomen. General surgery consulted. Pain control with IV digoxin as needed. Nothing by mouth until seen by surgery. 2. 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 Vascular surgery consulted for further evaluation 3. Essential hypertension: Blood pressure not well controlled. Will resume home medication and continue to monitor closely 4. History of coronary artery disease, continue home regimen 5. DVT prophylaxis with subcu heparin Today, I reviewed his medication list and lab work results. Continue current regimen. IV fluid hydration with normal saline at 75 mL per hour. Appreciate trial consultant's recommendations. The patient is admitted with an anticipated greater than 2 midnight stay for evaluation of the medical problems noted above Discussed with: Patient and nursing staff Anticipated discharge date: To be determined based on clinical course Anticipated discharge place: home A total of 45 minutes was spent on the care of this complex patient more than 50% of the time was spent in counseling and care coordination.
--- NOTE | 2020-02-07 19:08 | P.GSCN ---
History of Present Illness Consult date: 02/07/20 Reason for Consult: Left lower quadrant abdominal pain History of present illness: Patient comes in the hospital earlier today with pain left lower abdomen. Patient describes pain as being crampy and gassy. Began at 9:00. Had episodes of nausea and vomiting. White blood cell count elevated at 20,000. No fevers or chills. No flulike symptoms. CAT scan was performed with IV contrast as a CTA. Patient with history of prior aortic stent graft. Patient does have a endoleak with slight dilation left iliac artery. Vascular surgery following. Pain slightly better at this time. He did have 2 bowel movements today which she thought were normal. Denies rectal bleeding or melena. Did have a very hard large stool several days ago with some rectal discomfort at that time. CAT scan reviewed. Patient has extensive diverticulosis without definite inflammatory changes. No free air is seen. Hernia containing fat is noted. Patient states hernia is chronic and he does not have pain at the hernia. Other findings on CAT scan include rectal wall thickening. No perirectal inflammatory changes however. Review of Systems The patient denies any acute changes in vision or hearing, no dysphagia or odynophagia, no chest pain or shortness of breath, no dysuria or hematuria, no headache, no runny nose, no rectal bleeding or melena, no unexplained weight loss Past Medical History Past Medical History: Cancer, Myocardial Infarction ([place]) Additional Past Medical History / Comment(s): prostate cancer, aortic aneurysm repair History of Any Multi-Drug Resistant Organisms: None Reported Past Surgical History: Heart Catheterization With Stent, Prostate Surgery Past Psychological History: No Psychological Hx Reported Smoking Status: Current every day smoker Past Alcohol Use History: None Reported Past Drug Use History: None Reported Medications and Allergies Home Medications Medication Instructions Recorded Confirmed Type Atorvastatin [Lipitor] 40 mg PO AC-SUPPER 01/01/18 02/07/20 History Isosorbide Mononitrate [Ismo] 10 mg PO AC-BID@0530,1730 01/01/18 02/07/20 History Multivit-Min/FA/Lycopen/Lutein 1 tab PO DAILY@1200 01/01/18 02/07/20 History [Centrum Silver Tablet] Sennosides/Docusate Sodium [Kathie 1 tab PO DAILY@0530 01/01/18 02/07/20 History Colace] Ubidecarenone [Co Q-10] 200 mg PO DAILY@1200 01/01/18 02/07/20 History atenoloL [Tenormin] 12.5 mg PO DAILY@0530 01/01/18 02/07/20 History captopriL [Capoten] 25 mg PO BID@0530,2100 01/01/18 02/07/20 History Aspirin EC [Ecotrin] 325 mg PO DAILY@0530 02/07/20 02/07/20 History Nitroglycerin Sl Tabs [Nitrostat] 0.4 mg SL Q5M PRN 02/07/20 02/07/20 History amLODIPine [Norvasc] 5 mg PO AC-SUPPER 02/07/20 02/07/20 History Allergies Allergy/AdvReac Type Severity Reaction Status Date / Time clopidogrel [From Plavix] Allergy Rash/Hives Verified 02/07/20 15:31 codeine Allergy Chest Pain Verified 02/07/20 15:31 fentanyl Allergy Rash/Hives Verified 02/07/20 15:31 Surgical - Exam Vital Signs Temp Pulse Resp BP Pulse Ox 97.7 F 64 18 164/83 97 02/07/20 11:55 02/07/20 11:55 02/07/20 11:55 02/07/20 11:55 02/07/20 11:55 Physical exam: General: Well-developed, well-nourished HEENT: Normocephalic, sclerae nonicteric Abdomen: Mild diffuse tenderness increased in the lower quadrants left greater than right, nondistended, hernia left groin easily reducible and nontender Extremities: No edema Neuro: Alert and oriented Results - Labs 02/07/20 12:06 02/07/20 12:00 Abnormal Lab Results - Last 24 Hours (Table) 02/07/20 02/07/20 02/07/20 Range/Units 12:00 12:06 12:27 WBC 20.5 H (3.8-10.6) k/uL Neutrophils # 17.6 H (1.3-7.7) k/uL Chloride 108 H (98-107) mmol/L BUN 21 H (9-20) mg/dL Creatinine 1.26 H (0.66-1.25) mg/dL Glucose 161 H (74-99) mg/dL Urine Protein Trace H (Negative) Amorphous Sediment Moderate H (None) /hpf Diabetes panel 02/07/20 Range/Units 12:00 Sodium 138 (137-145) mmol/L Potassium 4.2 (3.5-5.1) mmol/L Chloride 108 H (98-107) mmol/L Carbon Dioxide 25 (22-30) mmol/L BUN 21 H (9-20) mg/dL Creatinine 1.26 H (0.66-1.25) mg/dL Glucose 161 H (74-99) mg/dL Calcium 8.9 (8.4-10.2) mg/dL AST 25 (17-59) U/L ALT 17 (4-49) U/L Alkaline Phosphatase 67 (38-126) U/L Total Protein 6.5 (6.3-8.2) g/dL Albumin 3.8 (3.5-5.0) g/dL Calcium panel 02/07/20 Range/Units 12:00 Calcium 8.9 (8.4-10.2) mg/dL Albumin 3.8 (3.5-5.0) g/dL Pituitary panel 02/07/20 Range/Units 12:00 Sodium 138 (137-145) mmol/L Potassium 4.2 (3.5-5.1) mmol/L Chloride 108 H (98-107) mmol/L Carbon Dioxide 25 (22-30) mmol/L BUN 21 H (9-20) mg/dL Creatinine 1.26 H (0.66-1.25) mg/dL Glucose 161 H (74-99) mg/dL Calcium 8.9 (8.4-10.2) mg/dL Adrenal panel 02/07/20 Range/Units 12:00 Sodium 138 (137-145) mmol/L Potassium 4.2 (3.5-5.1) mmol/L Chloride 108 H (98-107) mmol/L Carbon Dioxide 25 (22-30) mmol/L BUN 21 H (9-20) mg/dL Creatinine 1.26 H (0.66-1.25) mg/dL Glucose 161 H (74-99) mg/dL Calcium 8.9 (8.4-10.2) mg/dL Total Bilirubin 0.4 (0.2-1.3) mg/dL AST 25 (17-59) U/L ALT 17 (4-49) U/L Alkaline Phosphatase 67 (38-126) U/L Total Protein 6.5 (6.3-8.2) g/dL Albumin 3.8 (3.5-5.0) g/dL Assessment and Plan (1) Intractable pain Narrative/Plan: 74-year-old male with abdominal pain. Patient with significant leukocytosis as well. Etiology unclear at this time. No surgical explanation for pain seen on recent CAT scan. We'll continue antibiotics empirically for possible mild diverticulitis or proctitis. Keep nothing by mouth. Recheck abdominal x-rays tomorrow. We'll follow closely. Discussed case with vascular. Current Visit: Yes Status: Acute Code(s): R52 - PAIN, UNSPECIFIED SNOMED Code(s): 90849389
[2020-02-07] MEDS: amLODIPine 5 MG TAB PO SCH (19:31)
[2020-02-07] MEDS: ISOSORBIDE MONONITRATE 10 MG TAB PO SCH (19:31)
[2020-02-07] MEDS: ATORVASTATIN 40 MG TAB PO SCH (19:31)
[2020-02-07] MEDS: SIMETHICONE 80 MG CHEWABLE PO SCH (21:10)
[2020-02-07] MEDS: HEPARIN SODIUM,PORCINE 5,000 UNIT/ML 1 ML VIAL SQ SCH (21:10)
[2020-02-07] MEDS: HYDROmorphone 0.5 MG/0.5 ML SYRINGE IVP PRN (21:13)
[2020-02-07] MEDS: metroNIDAZOLE-NS PMX 500 MG in SALINE 1 100ML.BAG IVPB SCH (23:37)
[2020-02-07] MEDS: PIPERACILLIN-TAZOBACTAM 3.375 GM in SODIUM CHLORIDE 0.9% 100 ML IVPB SCH (23:38)
[2020-02-08] MEDS: HYDROmorphone 0.5 MG/0.5 ML SYRINGE IVP PRN ×4 (00:13→22:51)
[2020-02-08] MEDS: SODIUM CHLORIDE 0.9% 1,000 ML IV SCH ×2 (04:29→16:25)
[2020-02-08 07:18] LABS: Basophils % (A) 0 %; Eosinophils % (A) 0 %; HCT 47.2 % (39.0-53.0); HGB 15.5 gm/dL (13.0-17.5); Lymphocytes # (A) 1.3 k/uL (1.0-4.8); Lymphocytes % (A) 6 %; MCH 31.8 pg (25.0-35.0); MCHC 32.9 g/dL (31.0-37.0); MCV 96.8 fL (80.0-100.0); Mean Platelet Volume 8.1; Monocytes % (A) 5 %; Neutrophils # (A) 18.3 k/uL (1.3-7.7); Neutrophils % (A) 88 %; Platelet Count 142 k/uL (150-450); RBC 4.88 m/uL (4.30-5.90); RDW 14.2 % (11.5-15.5); WBC 20.9 k/uL (3.8-10.6)
[2020-02-08] MEDS: metroNIDAZOLE-NS PMX 500 MG in SALINE 1 100ML.BAG IVPB SCH ×3 (09:39→22:52)
[2020-02-08] MEDS: PIPERACILLIN-TAZOBACTAM 3.375 GM in SODIUM CHLORIDE 0.9% 100 ML IVPB SCH ×3 (09:44→23:59)
[2020-02-08] MEDS: ISOSORBIDE MONONITRATE 10 MG TAB PO SCH ×2 (09:50→16:23)
--- NOTE | 2020-02-08 10:08 | P.PN ---
Subjective Progress Note Date: 02/08/20 Patient told me that he is feeling about the same compared to yesterday. Abdominal pain and discomfort not changed. He had one episode of vomiting this morning. He is not passing gas. Abdominal x-ray done this morning awaiting report. Objective - Vital Signs Vital signs: Vital Signs Temp 98.7 F 02/08/20 08:14 Pulse 51 L 02/08/20 08:14 Resp 14 02/08/20 08:14 BP 161/72 02/08/20 08:14 Pulse Ox 91 L 02/08/20 08:14 Intake & Output 02/07/20 02/08/20 02/08/20 18:59 06:59 18:59 Output Total 325 Balance -325 Weight 72.575 kg Output: Urine 325 - Exam General: The patient is awake and alert, in no distress Eye: there is normal conjunctiva bilaterally. Neck: The neck is supple, there is no JVD. Cardiovascular: Normal S1-S2, no S3-S4, no murmurs. Respiratory: Lungs clear to auscultation bilaterally Gastrointestinal: Abdomen is soft, slightly distended with mild tenderness to palpation throughout the abdomen Musculoskeletal: There is no pedal edema. Neurological:. Speech is normal. Skin: Skin is warm and dry - Labs CBC & Chem 7: 02/08/20 06:51 02/07/20 12:00 Labs: Abnormal Lab Results - Last 24 Hours (Table) 02/07/20 02/07/20 02/07/20 Range/Units 12:00 12:06 12:27 WBC 20.5 H (3.8-10.6) k/uL Plt Count (150-450) k/uL Neutrophils # 17.6 H (1.3-7.7) k/uL Chloride 108 H (98-107) mmol/L BUN 21 H (9-20) mg/dL Creatinine 1.26 H (0.66-1.25) mg/dL Glucose 161 H (74-99) mg/dL Urine Protein Trace H (Negative) Amorphous Sediment Moderate H (None) /hpf 02/08/20 Range/Units 06:51 WBC 20.9 H (3.8-10.6) k/uL Plt Count 142 L (150-450) k/uL Neutrophils # 18.3 H (1.3-7.7) k/uL Chloride (98-107) mmol/L BUN (9-20) mg/dL Creatinine (0.66-1.25) mg/dL Glucose (74-99) mg/dL Urine Protein (Negative) Amorphous Sediment (None) /hpf Assessment and Plan Assessment: This is a 74-year-old male who presented to the emergency room with worsening abdominal pain. Patient was evaluated in the ER and currently admitted to the hospital for further management of his medical problems noted below. 1. Left inguinal hernia, moderate size, with suspected incarceration noted on computed tomography scan of the abdomen. General surgery consulted. Patient started on antibiotic empirically for suspected mild diverticulitis proctitis. Pain control with IV digoxin as needed. Nothing by mouth until seen by surgery. 2. 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 Vascular surgery consulted for further evaluation 3. Essential hypertension: Blood pressure not well controlled may be secondary to pain. Continue home medication and continue to monitor closely 4. History of coronary artery disease, continue home regimen 5. DVT prophylaxis with subcu heparin Today, I reviewed his medication list and lab work results. Continue current regimen. IV fluid hydration with normal saline at 75 mL per hour. Appreciate hr shared services consultant's recommendations.
[2020-02-08] MEDS: HEPARIN SODIUM,PORCINE 5,000 UNIT/ML 1 ML VIAL SQ SCH ×2 (10:31→21:24)
[2020-02-08] MEDS: ASPIRIN 325 MG TAB PO SCH (10:32)
[2020-02-08] MEDS: SIMETHICONE 80 MG CHEWABLE PO SCH ×4 (10:33→21:24)
[2020-02-08 11:18] LABS: Anion Gap 7.1 mmol/L (4.00-12.00); BUN/Creat Ratio 14.5 Ratio (12.00-20.00); Calcium 9.1 mg/dL (8.7-10.3); Carbon Dioxide 23.9 mmol/L (21.6-31.8); Non-African American GFR(CKD) 31.9 (60.0-200.0); Potassium 4.5 mmol/L (3.5-5.5)
--- NOTE | 2020-02-08 11:47 | XR ---
EXAMINATION TYPE: XR abdomen 2V DATE OF EXAM: 02/08/2020 7:30 AM CLINICAL HISTORY: Left lower quadrant abdominal pain. Nausea and vomiting. TECHNIQUE: Supine and upright images of the abdomen and pelvis were obtained COMPARISON: Abdominal radiograph 01/11/2018. CTA abdominal aorta 02/07/2020. FINDINGS: Redemonstrated aorto by iliac stent grafting and left renal stent. Tortuous course of the a bdominal aorta. Pelvic surgical clips. Excreted contrast within the urinary bladder status post CTA 1 . Scattered gas is seen in non-distended small bowel loops. Gas and fecal material is seen i n non-distended colon. There is no visceromegaly, pneumoperitoneum, or abnormal calcification appreci ated. The lung bases are clear. The osseous structures are intact. IMPRESSION: 1. Nonspecific bowel gas pattern. 2. No pneumoperitoneum.
--- NOTE | 2020-02-08 11:49 | P.GSCN ---
History of Present Illness Consult date: 02/08/20 Reason for Consult: Aortic iliac graft History of present illness: This is a 74-year-old male who presented to the emergency department with lower abdominal pain, and left groin pain which began yesterday morning. The patient has a history of a renal abdominal aortic aneurysm with left iliac stent by Dr. Gerardo in 2018. She has a past medical history that includes coronary artery disease and prostate cancer. He is a current every day smoker. He states today the pain is across his lower abdomen and now radiating to his right side and right flank. He states he's had nausea and vomiting, had 2 episodes of vomiting today. His last bowel movement was yesterday, he is passing no flatus today. He denies pain down bilateral lower extremities. He takes a low-dose aspirin, atorvastatin and Plavix daily. CT angiogram of abdominal aorta with runoff impression states as compared to 12/28/2017 there is increasing size of now moderate sized activity left indirect inguinal hernia measuring 12.5 x 5.3 cm which extends down into the scrotal sac. There is mass effect onto the inguinal ring that may reflect incarceration. No inflammatory changes or fluid to suggest or angulation. Abdominal by iliac endovascular stent graft. The chickaloon sac is relatively similar in size at 5.9x 5.7 cm. However there has been some enlargement along the right lateral distal landing zone so that the opacified right common iliac artery is bulging into the chickaloon sac and now dilated at 2.5 cm wide. The finding is new from 2018 unable to exclude a type IB endoleak. A left renal artery stent is present, however there is no longer any arterial flow beyond the stent. 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 There is bilateral runoff via the anterior tibial arteries, on the left there is occlusion of the posterior tibial artery at its origin. Review of Systems 14 point review systems was completed all pertinent positives and negatives as stated in the HPI. Past Medical History Past Medical History: Cancer, Myocardial Infarction ([place]) Additional Past Medical History / Comment(s): prostate cancer, aortic aneurysm repair Last Myocardial Infarction Date:: 2007 History of Any Multi-Drug Resistant Organisms: None Reported Past Surgical History: Heart Catheterization With Stent, Prostate Surgery Past Anesthesia/Blood Transfusion Reactions: Postoperative Nausea & Vomiting (PONV) Date of Last Stent Placement:: 2007 Past Psychological History: No Psychological Hx Reported Smoking Status: Current every day smoker Past Alcohol Use History: None Reported Past Drug Use History: None Reported Medications and Allergies Home Medications Medication Instructions Recorded Confirmed Type Atorvastatin [Lipitor] 40 mg PO AC-SUPPER 01/01/18 02/07/20 History Isosorbide Mononitrate [Ismo] 10 mg PO AC-BID@0530,1730 01/01/18 02/07/20 History Multivit-Min/FA/Lycopen/Lutein 1 tab PO DAILY@1200 01/01/18 02/07/20 History [Centrum Silver Tablet] Sennosides/Docusate Sodium [Kathie 1 tab PO DAILY@0530 01/01/18 02/07/20 History Colace] Ubidecarenone [Co Q-10] 200 mg PO DAILY@1200 01/01/18 02/07/20 History atenoloL [Tenormin] 12.5 mg PO DAILY@0530 01/01/18 02/07/20 History captopriL [Capoten] 25 mg PO BID@0530,2100 01/01/18 02/07/20 History Aspirin EC [Ecotrin] 325 mg PO DAILY@0530 02/07/20 02/07/20 History Nitroglycerin Sl Tabs [Nitrostat] 0.4 mg SL Q5M PRN 02/07/20 02/07/20 History amLODIPine [Norvasc] 5 mg PO AC-SUPPER 02/07/20 02/07/20 History Allergies Allergy/AdvReac Type Severity Reaction Status Date / Time clopidogrel [From Plavix] Allergy Rash/Hives Verified 02/07/20 15:31 codeine Allergy Chest Pain Verified 02/07/20 15:31 fentanyl Allergy Rash/Hives Verified 02/07/20 15:31 Surgical - Exam Vital Signs Temp Pulse Resp BP Pulse Ox 97.7 F 64 18 164/83 97 02/07/20 11:55 02/07/20 11:55 02/07/20 11:55 02/07/20 11:55 02/07/20 11:55 General appearance: The patient is alert, oriented, in no acute distress. HET: Head is normocephalic and atraumatic. Neck: Supple without lymphadenopathy. Trachea midline. Heart: S1 S2. Regular rate and rhythm. Lungs: No crackles or wheezes are heard. Abdomen: Soft, tenderness to palpation along the lower abdomen, nondistended with bowel sounds. Extremities: Normal skin color and turgor. He has scaling and old sores on bilateral lower extremities. No cyanosis, rash, ulceration, clubbing, or edema. Radial 2/4 bilaterally. Bilateral palpable posterior tibialis and dorsalis pedis pulses. Capillary refill less than 5 seconds bilaterally. Full motion and sensorimotor intact. Neurological: No focal deficits. Strength and sensation are grossly intact. Results CT angiogram of abdominal aorta with runoff impression states as compared to 12/28/2017 there is increasing size of now moderate sized activity left indirect inguinal hernia measuring 12.5 x 5.3 cm which extends down into the scrotal sac. There is mass effect onto the inguinal ring that may reflect incarceration. No inflammatory changes or fluid to suggest or angulation. Abdominal by iliac endovascular stent graft. The chickaloon sac is relatively similar in size at 5.9x 5.7 cm. However there has been some enlargement along the right lateral distal landing zone so that the opacified right common iliac artery is bulging into the chickaloon sac and now dilated at 2.5 cm wide. The finding is new from 2018 unable to exclude a type IB endoleak. A left renal artery stent is present, however there is no longer any arterial flow beyond the stent. 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 There is bilateral runoff via the anterior tibial arteries, on the left there is occlusion of the posterior tibial artery at its origin. - Labs 02/08/20 06:51 02/08/20 06:51 Abnormal Lab Results - Last 24 Hours (Table) 02/07/20 02/07/20 02/07/20 Range/Units 12:00 12:06 12:27 WBC 20.5 H (3.8-10.6) k/uL Plt Count (150-450) k/uL Neutrophils # 17.6 H (1.3-7.7) k/uL Chloride 108 H (98-107) mmol/L BUN 21 H (9-20) mg/dL Creatinine 1.26 H (0.66-1.25) mg/dL Glucose 161 H (74-99) mg/dL Urine Protein Trace H (Negative) Amorphous Sediment Moderate H (None) /hpf 02/08/20 Range/Units 06:51 WBC 20.9 H (3.8-10.6) k/uL Plt Count 142 L (150-450) k/uL Neutrophils # 18.3 H (1.3-7.7) k/uL Chloride (98-107) mmol/L BUN (9-20) mg/dL Creatinine (0.66-1.25) mg/dL Glucose (74-99) mg/dL Urine Protein (Negative) Amorphous Sediment (None) /hpf Diabetes panel 02/07/20 Range/Units 12:00 Sodium 138 (137-145) mmol/L Potassium 4.2 (3.5-5.1) mmol/L Chloride 108 H (98-107) mmol/L Carbon Dioxide 25 (22-30) mmol/L BUN 21 H (9-20) mg/dL Creatinine 1.26 H (0.66-1.25) mg/dL Glucose 161 H (74-99) mg/dL Calcium 8.9 (8.4-10.2) mg/dL AST 25 (17-59) U/L ALT 17 (4-49) U/L Alkaline Phosphatase 67 (38-126) U/L Total Protein 6.5 (6.3-8.2) g/dL Albumin 3.8 (3.5-5.0) g/dL Calcium panel 02/07/20 Range/Units 12:00 Calcium 8.9 (8.4-10.2) mg/dL Albumin 3.8 (3.5-5.0) g/dL Pituitary panel 02/07/20 Range/Units 12:00 Sodium 138 (137-145) mmol/L Potassium 4.2 (3.5-5.1) mmol/L Chloride 108 H (98-107) mmol/L Carbon Dioxide 25 (22-30) mmol/L BUN 21 H (9-20) mg/dL Creatinine 1.26 H (0.66-1.25) mg/dL Glucose 161 H (74-99) mg/dL Calcium 8.9 (8.4-10.2) mg/dL Adrenal panel 02/07/20 Range/Units 12:00 Sodium 138 (137-145) mmol/L Potassium 4.2 (3.5-5.1) mmol/L Chloride 108 H (98-107) mmol/L Carbon Dioxide 25 (22-30) mmol/L BUN 21 H (9-20) mg/dL Creatinine 1.26 H (0.66-1.25) mg/dL Glucose 161 H (74-99) mg/dL Calcium 8.9 (8.4-10.2) mg/dL Total Bilirubin 0.4 (0.2-1.3) mg/dL AST 25 (17-59) U/L ALT 17 (4-49) U/L Alkaline Phosphatase 67 (38-126) U/L Total Protein 6.5 (6.3-8.2) g/dL Albumin 3.8 (3.5-5.0) g/dL Assessment and Plan Assessment: 1. Abdominal pain 2. Prior history of infrarenal abdominal aortic aneurysm status post left renal artery stent 2017 3. Left renal artery occlusion 4. Coronary artery disease Plan: Dr. Gerardo reviewed the CT angiogram. Dr. Martins examined the patient and reviewed CT angiogram. It is unlikely the patient's pain is related to his aortic iliac graft. At this time there is no emergent need for any vascular surgical intervention. We will sign off at this time, patient is instructed to follow-up as an outpatient with Dr. Gerardo. Thank you for this consultation and allowing us take part in the plan of care of your patient during his hospital stay. The impression and plan of care has been dictated as directed. Dr. Bernardo I performed a history and examination of this patient, discussed the same with the dictator. I agree with the dictator's note ,documented as a scribe. Any additional findings or plans will be noted.
--- NOTE | 2020-02-08 13:18 | P.PN ---
Subjective Progress Note Date: 02/08/20 Principal diagnosis: Abdominal pain Patient seen at the bedside. He is complaining of less discomfort than yesterday. He did have an episode of vomiting earlier today. No flatus or bowel movement. X-ray showed no evidence of bowel obstruction or pneumoperitoneum. Says his pain has radiated around the left flank to the left back. Does feel somewhat like a kidney stone he has passed before. White blood cell count remains elevated at 20. He is afebrile. No tachycardia. Creatinine 1 from 1.2-2.0. Urinalysis clear. Objective - Vital Signs Vital signs: Vital Signs Temp 98.7 F 02/08/20 08:14 Pulse 51 L 02/08/20 08:14 Resp 14 02/08/20 08:14 BP 161/72 02/08/20 08:14 Pulse Ox 91 L 02/08/20 08:14 Intake & Output 02/07/20 02/08/20 02/08/20 18:59 06:59 18:59 Output Total 325 Balance -325 Weight 72.575 kg Output: Urine 325 - Exam Abdomen: Soft, mild diffuse tenderness increased in the left lower abdomen and left flank, no rebound or guarding - Labs CBC & Chem 7: 02/08/20 06:51 02/08/20 06:51 Labs: Abnormal Lab Results - Last 24 Hours (Table) 02/08/20 02/08/20 Range/Units 06:51 06:51 WBC 20.9 H (3.8-10.6) k/uL Plt Count 142 L (150-450) k/uL Neutrophils # 18.3 H (1.3-7.7) k/uL BUN 29.0 H (9.0-27.0) mg/dL Creatinine 2.0 H (0.6-1.5) mg/dL Est GFR (CKD-EPI)AfAm 37.0 L (60.0-200.0) Est GFR (CKD-EPI)NonAf 31.9 L (60.0-200.0) Glucose 135 H (70-110) mg/dL Assessment and Plan (1) Intractable pain Narrative/Plan: Patient slightly better today. Continue empiric antibiotics for possible diverticulitis. Given the change in symptoms and the increased creatinine with CTA findings of left renal artery occlusion we'll consult urology for second opinion. Continue nothing by mouth for now. We'll follow closely. Current Visit: Yes Status: Acute Code(s): R52 - PAIN, UNSPECIFIED SNOMED Code(s): 08825073
[2020-02-08] MEDS: ATORVASTATIN 40 MG TAB PO SCH (16:24)
[2020-02-08] MEDS: amLODIPine 5 MG TAB PO SCH (16:24)
--- NOTE | 2020-02-08 20:15 | P.GSCN ---
History of Present Illness Consult date: 02/08/20 Reason for Consult: Left sided abdominal pain, History of present illness: Mr Carlson is a 74 yo male who is admitted with left lower lower abdominal pain. He indicates his pain is left lower abdomen and some radiation in lower back and flank. Denies any gross hematuria or dysuria. 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 . Vascular surgery is following the patient . CT also showed a 7 mm non-obs tructive renal stone, of note he does have hx of kidney stones. Review of Systems - Constitutional Denies fever, Denies weight loss - Cardiovascular Denies chest pain, Denies shortness of breath - Respiratory Denies cough, Denies 7 - Gastrointestinal Reports abdominal pain, Reports constipation - Genitourinary Reports flank pain, Reports kidney stones, Denies hematuria - Neurological Denies headaches, Denies syncope Past Medical History Past Medical History: Cancer, Myocardial Infarction ([place]) Additional Past Medical History / Comment(s): prostate cancer, aortic aneurysm repair Last Myocardial Infarction Date:: 2007 History of Any Multi-Drug Resistant Organisms: None Reported Past Surgical History: Heart Catheterization With Stent, Prostate Surgery Past Anesthesia/Blood Transfusion Reactions: Postoperative Nausea & Vomiting (PONV) Date of Last Stent Placement:: 2007 Past Psychological History: No Psychological Hx Reported Smoking Status: Current every day smoker Past Alcohol Use History: None Reported Past Drug Use History: None Reported Medications and Allergies Home Medications Medication Instructions Recorded Confirmed Type Atorvastatin [Lipitor] 40 mg PO AC-SUPPER 01/01/18 02/07/20 History Isosorbide Mononitrate [Ismo] 10 mg PO AC-BID@0530,1730 01/01/18 02/07/20 History Multivit-Min/FA/Lycopen/Lutein 1 tab PO DAILY@1200 01/01/18 02/07/20 History [Centrum Silver Tablet] Sennosides/Docusate Sodium [Kathie 1 tab PO DAILY@0530 01/01/18 02/07/20 History Colace] Ubidecarenone [Co Q-10] 200 mg PO DAILY@1200 01/01/18 02/07/20 History atenoloL [Tenormin] 12.5 mg PO DAILY@0530 01/01/18 02/07/20 History captopriL [Capoten] 25 mg PO BID@0530,2100 01/01/18 02/07/20 History Aspirin EC [Ecotrin] 325 mg PO DAILY@0530 02/07/20 02/07/20 History Nitroglycerin Sl Tabs [Nitrostat] 0.4 mg SL Q5M PRN 02/07/20 02/07/20 History amLODIPine [Norvasc] 5 mg PO AC-SUPPER 02/07/20 02/07/20 History Allergies Allergy/AdvReac Type Severity Reaction Status Date / Time clopidogrel [From Plavix] Allergy Rash/Hives Verified 02/07/20 15:31 codeine Allergy Chest Pain Verified 02/07/20 15:31 fentanyl Allergy Rash/Hives Verified 02/07/20 15:31 Surgical - Exam Vital Signs Temp Pulse Resp BP Pulse Ox 97.7 F 64 18 164/83 97 02/07/20 11:55 02/07/20 11:55 02/07/20 11:55 02/07/20 11:55 02/07/20 11:55 - General well developed, well nourished, no distress, moderate pain - Eyes PERRL, normal ocular movement - Respiratory normal expansion, normal respiratory effort - Abdomen Abdomen: soft, tender - Psychiatric oriented to time, oriented to person, oriented to place, speech is normal Results - Labs 02/08/20 06:51 02/08/20 06:51 Abnormal Lab Results - Last 24 Hours (Table) 02/08/20 02/08/20 Range/Units 06:51 06:51 WBC 20.9 H (3.8-10.6) k/uL Plt Count 142 L (150-450) k/uL Neutrophils # 18.3 H (1.3-7.7) k/uL BUN 29.0 H (9.0-27.0) mg/dL Creatinine 2.0 H (0.6-1.5) mg/dL Est GFR (CKD-EPI)AfAm 37.0 L (60.0-200.0) Est GFR (CKD-EPI)NonAf 31.9 L (60.0-200.0) Glucose 135 H (70-110) mg/dL Microbiology - Last 24 Hours (Table) 02/07/20 15:16 Blood Culture - Preliminary Blood No Growth after 24 hours Diabetes panel 02/08/20 Range/Units 06:51 Sodium 140 (135-145) mmol/L Potassium 4.5 (3.5-5.5) mmol/L Chloride 109 (96-109) mmol/L Carbon Dioxide 23.9 (21.6-31.8) mmol/L BUN 29.0 H (9.0-27.0) mg/dL Creatinine 2.0 H (0.6-1.5) mg/dL Glucose 135 H (70-110) mg/dL Calcium 9.1 (8.7-10.3) mg/dL Calcium panel 02/08/20 Range/Units 06:51 Calcium 9.1 (8.7-10.3) mg/dL Pituitary panel 02/08/20 Range/Units 06:51 Sodium 140 (135-145) mmol/L Potassium 4.5 (3.5-5.5) mmol/L Chloride 109 (96-109) mmol/L Carbon Dioxide 23.9 (21.6-31.8) mmol/L BUN 29.0 H (9.0-27.0) mg/dL Creatinine 2.0 H (0.6-1.5) mg/dL Glucose 135 H (70-110) mg/dL Calcium 9.1 (8.7-10.3) mg/dL Adrenal panel 02/08/20 Range/Units 06:51 Sodium 140 (135-145) mmol/L Potassium 4.5 (3.5-5.5) mmol/L Chloride 109 (96-109) mmol/L Carbon Dioxide 23.9 (21.6-31.8) mmol/L BUN 29.0 H (9.0-27.0) mg/dL Creatinine 2.0 H (0.6-1.5) mg/dL Glucose 135 H (70-110) mg/dL Calcium 9.1 (8.7-10.3) mg/dL Assessment and Plan Assessment: Mr Carlson is a 74 yo male who is admitted with left lower lower abdominal pain. 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 . Vascular surgery is following the patient . CT also showed a 7 mm non-obstructive renal stone, Plan: -Pain is more LLQ abdominal pain than flank pain. 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 -Patient non obstructive stone unlikely to be cause of pain
[2020-02-09] MEDS: ASPIRIN 325 MG TAB PO SCH (05:48)
[2020-02-09] MEDS: ISOSORBIDE MONONITRATE 10 MG TAB PO SCH ×2 (05:48→17:00)
[2020-02-09] MEDS: HYDROmorphone 0.5 MG/0.5 ML SYRINGE IVP PRN (05:51)
[2020-02-09 06:54] LABS: HCT 47.5 % (39.0-53.0); HGB 15.5 gm/dL (13.0-17.5); MCH 31.8 pg (25.0-35.0); MCHC 32.7 g/dL (31.0-37.0); MCV 97.4 fL (80.0-100.0); Mean Platelet Volume 8.5; Platelet Count 145 k/uL (150-450); RBC 4.88 m/uL (4.30-5.90); RDW 14.1 % (11.5-15.5); WBC 33.9 k/uL (3.8-10.6)
[2020-02-09 07:19] LABS: Metamyelocytes # (M) 0.68 k/uL (0); Metamyelocytes % 2 %; Monocytes # (M) 2.03 k/uL (0-1.0); Neutrophils # (M) 29.83 k/uL (1.3-7.7); Neutrophils % (M) 88 %; Nucleated Red Blood Cells 0 /100 WBC (0-0); Total Cells Counted 200
[2020-02-09 07:20] LABS: Large Platelets Present
[2020-02-09] MEDS: SIMETHICONE 80 MG CHEWABLE PO SCH ×4 (07:50→22:14)
[2020-02-09] MEDS: metroNIDAZOLE-NS PMX 500 MG in SALINE 1 100ML.BAG IVPB SCH ×3 (07:50→23:08)
[2020-02-09] MEDS: SODIUM CHLORIDE 0.9% 1,000 ML IV SCH ×2 (07:51→22:14)
[2020-02-09] MEDS: PIPERACILLIN-TAZOBACTAM 3.375 GM in SODIUM CHLORIDE 0.9% 100 ML IVPB SCH ×3 (07:51→23:07)
[2020-02-09] MEDS: HEPARIN SODIUM,PORCINE 5,000 UNIT/ML 1 ML VIAL SQ SCH ×2 (07:51→22:14)
[2020-02-09 09:15] LABS: Anion Gap 5.6 mmol/L (4.00-12.00); BUN/Creat Ratio 22.22 Ratio (12.00-20.00); Calcium 8.6 mg/dL (8.7-10.3); Carbon Dioxide 23.4 mmol/L (21.6-31.8); Non-African American GFR(CKD) 36.3 (60.0-200.0); Potassium 4.5 mmol/L (3.5-5.5)
--- NOTE | 2020-02-09 10:46 | P.PN ---
Subjective Progress Note Date: 02/09/20 Patient is feeling slightly better today. His only reporting pain when he moves around or he get up. He said that he is not passing gas as of yet. No vomiting today. Objective - Vital Signs Vital signs: Vital Signs Temp 98.7 F 02/09/20 07:00 Pulse 66 02/09/20 07:00 Resp 16 02/09/20 07:00 BP 174/85 02/09/20 07:00 Pulse Ox 90 L 02/09/20 07:00 Intake & Output 02/08/20 02/09/20 02/09/20 18:59 06:59 18:59 Intake Total 400 Output Total 150 Balance -150 400 Intake: Intake, IV Titration 350 Amount Piperacillin-Tazobactam 3 100 .375 gm In Sodium Chloride 0.9% 100 ml @ 25 mls/hr IVPB Q8HR [facility] Rx# :[id number] Sodium Chloride 0.9% 1, 150 000 ml @ 75 mls/hr IV . [id number] [facility] Rx#:[id number] metroNIDAZOLE-NS PMX 500 100 mg In Saline 1 100ml.bag @ 100 mls/hr IVPB Q8HR [facility] Rx#:[id number] Oral 50 Output: Urine 150 Other: Voiding Method Toilet Urinal # Voids 1 2 2 - Exam General: The patient is awake and alert, in no distress Eye: there is normal conjunctiva bilaterally. Neck: The neck is supple, there is no JVD. Cardiovascular: Normal S1-S2, no S3-S4, no murmurs. Respiratory: Lungs clear to auscultation bilaterally Gastrointestinal: Abdomen is soft and nontender. Nondistended. Musculoskeletal: There is no pedal edema. Neurological:. Speech is normal. Skin: Skin is warm and dry - Labs CBC & Chem 7: 02/09/20 06:28 02/09/20 06:28 Labs: Abnormal Lab Results - Last 24 Hours (Table) 02/08/20 02/09/20 02/09/20 Range/Units 06:51 06:28 06:28 WBC 33.9 H (3.8-10.6) k/uL Plt Count 145 L (150-450) k/uL Neutrophils # (Manual) 29.83 H (1.3-7.7) k/uL Monocytes # (Manual) 2.03 H (0-1.0) k/uL Metamyelocytes # (Man) 0.68 H (0) k/uL Chloride 111 H (96-109) mmol/L BUN 29.0 H 40.0 H (9.0-27.0) mg/dL Creatinine 2.0 H 1.8 H (0.6-1.5) mg/dL Est GFR (CKD-EPI)AfAm 37.0 L 42.0 L (60.0-200.0) Est GFR (CKD-EPI)NonAf 31.9 L 36.3 L (60.0-200.0) BUN/Creatinine Ratio 22.22 H (12.00-20.00) Ratio Glucose 135 H 130 H (70-110) mg/dL Calcium 8.6 L (8.7-10.3) mg/dL Microbiology - Last 24 Hours (Table) 02/07/20 15:16 Blood Culture - Preliminary Blood No Growth after 24 hours Assessment and Plan Assessment: This is a 74-year-old male who presented to the emergency room with worsening abdominal pain. Patient was evaluated in the ER and currently admitted to the hospital for further management of his medical problems noted below. 1. Left inguinal hernia, moderate size, with suspected incarceration noted on computed tomography scan of the abdomen. General surgery consulted. Patient started on antibiotic empirically for suspected mild diverticulitis proctitis. 2. 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 Vascular surgery consulted for further evaluation. No intervention needed at this time. 3. Acute kidney injury, maybe secondary to dehydration. Continue IV fluid hydration. Creatinine improving slightly. Check postvoid residual to rule out retention. Hold nephrotoxic including captopril 4. Left renal nonobstructive 7 mm calculus and approximately 5 cm renal cyst: Seen and evaluated by urology. No intervention needed at this time. 5. Essential hypertension: Blood pressure within acceptable range. Continue current regimen 6. History of coronary artery disease, continue home regimen 7. DVT prophylaxis with subcu heparin Today, I reviewed his medication list and lab work results. Abdominal x-ray yesterday showed nonspecific bowel gas pattern. Encouraged ambulation. Patient is still not passing gas. Awaiting social recommendation if it's okay to start clear liquids. Continue current regimen otherwise. IV fluid hydration with normal saline at 75 mL per hour. Appreciate personnel consultant's recommendations.
--- NOTE | 2020-02-09 13:43 | P.PN ---
Subjective Progress Note Date: 02/09/20 CHIEF COMPLAINT: Left flank abdominal pain HISTORY OF PRESENT ILLNESS: The patient is a 74-year-old male comes in with left inguinal hernia. He complains primarily of left flank pain. Per discussion with his , his vascular surgeon was at bedside earlier and reports his pain is from an ischemic left kidney as his stent is no longer working. He reports intermittent nausea. No vomiting. No moderate pain along the left fat containing inguinal hernia. Also, he has history of chronic constipation. ROS: No bowel movements. No fevers or chills. No new chest pain. No productive sputum PHYSICAL EXAM: VITAL SIGNS: Reviewed CONSTITUTIONAL: Well developed and in no acute distress. EYES: Conjuctivae without sclera icterus. Extraocular movements grossly intact. HEAD, EARS, NOSE, THROAT: Moist buccal mucosa. Head is atraumatic, normocephalic. Hears conversational speech. No nasal drainage. NECK: Supple. No thyroidomegaly. RESPIRATORY: Non-labored respirations and equal bilateral excursions. CARDIOVASCULAR: Palpable 2+ radial pulses. ABDOMEN: MUSCULOSKELETAL: No gross deformity of the lower extremities noted. No clubbing. No cyanosis. SKIN: Good skin turgor. Well perfused. NEUROLOGIC: Cranial nerves II through XII grossly intact. No focal or lateralizing signs. PSYCH: Appropriate affect. Alert and oriented to person, place and time. CLINICAL LABS: White blood cell count with persistent elevation 20.9 down 33.9. Creatinine elevated 1.26-2.0 now down to 1.8 STUDIES: CTA independently reviewed with large AAA with stent. Multiple cysts along the left kidney. Fat containing hernia. Sigmoid diverticulosis without diverticulitis. No small bowel obstruction. This is my independent interpretation. ASSESSMENT: 1. Left flank/abdominal pain 2. Leukocytosis 3. Ischemic left kidney PLAN: 1. May benefit from hematology versus infectious disease consultation for severe leukocytosis of unclear etiology 2. Will do trial of clear liquid diet 3. Adjust medications for nausea with fluids and check of electrolytes potassium and magnesium. Objective - Vital Signs Vital signs: Vital Signs Temp 98.7 F 02/09/20 07:00 Pulse 66 02/09/20 07:00 Resp 16 02/09/20 07:00 BP 174/85 02/09/20 07:00 Pulse Ox 90 L 02/09/20 07:00 Intake & Output 02/08/20 02/09/20 02/09/20 18:59 06:59 18:59 Intake Total 400 Output Total 150 Balance -150 400 Intake: Intake, IV Titration 350 Amount Piperacillin-Tazobactam 3 100 .375 gm In Sodium Chloride 0.9% 100 ml @ 25 mls/hr IVPB Q8HR [facility] Rx# :[id number] Sodium Chloride 0.9% 1, 150 000 ml @ 75 mls/hr IV . [id number] [facility] Rx#:[id number] metroNIDAZOLE-NS PMX 500 100 mg In Saline 1 100ml.bag @ 100 mls/hr IVPB Q8HR [facility] Rx#:[id number] Oral 50 Output: Urine 150 Other: Voiding Method Toilet Urinal # Voids 1 2 2 - Labs CBC & Chem 7: 02/09/20 06:28 02/09/20 06:28 Labs: Abnormal Lab Results - Last 24 Hours (Table) 02/08/20 02/09/20 02/09/20 Range/Units 06:51 06:28 06:28 WBC 33.9 H (3.8-10.6) k/uL Plt Count 145 L (150-450) k/uL Neutrophils # (Manual) 29.83 H (1.3-7.7) k/uL Monocytes # (Manual) 2.03 H (0-1.0) k/uL Metamyelocytes # (Man) 0.68 H (0) k/uL Chloride 111 H (96-109) mmol/L BUN 29.0 H 40.0 H (9.0-27.0) mg/dL Creatinine 2.0 H 1.8 H (0.6-1.5) mg/dL Est GFR (CKD-EPI)AfAm 37.0 L 42.0 L (60.0-200.0) Est GFR (CKD-EPI)NonAf 31.9 L 36.3 L (60.0-200.0) BUN/Creatinine Ratio 22.22 H (12.00-20.00) Ratio Glucose 135 H 130 H (70-110) mg/dL Calcium 8.6 L (8.7-10.3) mg/dL Microbiology - Last 24 Hours (Table) 02/07/20 15:16 Blood Culture - Preliminary Blood No Growth after 24 hours Assessment and Plan (1) Left kidney injury Current Visit: Yes Status: Acute Code(s): S37.002A - UNSPECIFIED INJURY OF LEFT KIDNEY, INITIAL ENCOUNTER SNOMED Code(s): 47559324 (2) Hx of psuhx-symdl-kjbwoqf bypass Current Visit: Yes Status: Acute Code(s): Z95.828 - PRESENCE OF OTHER VASCULAR IMPLANTS AND GRAFTS SNOMED Code(s): 644506391 (3) Intractable pain Current Visit: Yes Status: Acute Code(s): R52 - PAIN, UNSPECIFIED SNOMED Code(s): 82233575 (4) Left inguinal hernia Current Visit: Yes Status: Acute Code(s): K40.90 - UNIL INGUINAL HERNIA, W/O OBST OR GANGR, NOT SPCF RECUR SNOMED Code(s): 353198359 (5) Leukocytosis Current Visit: Yes Status: Acute Code(s): D72.829 - ELEVATED WHITE BLOOD CELL COUNT, UNSPECIFIED SNOMED Code(s): 989569863
--- NOTE | 2020-02-09 15:07 | XR ---
EXAMINATION TYPE: XR abdomen 2V DATE OF EXAM: 02/09/2020 COMPARISON: Yesterday HISTORY: Left lower quadrant pain. Possible bowel obstruction. TECHNIQUE: Supine and upright views FINDINGS: There is vascular stents noted. There is gas in large and small bowel loops without signifi cant enlargement of any one loop. There are multiple surgical clips in the pelvis. There is airspace consolidation left lower lobe. IMPRESSION: Acute abdominal gas pattern consistent with ileus. There is new left lower lobe airspace consolidation compared to yesterday. No free air. No sign of a bowel obstruction.
--- NOTE | 2020-02-09 15:21 | P.PN ---
Subjective Progress Note Date: 02/09/20 Principal diagnosis: AAA, left renal infarct Patient seen and examined. States pain is located at the left flank more than abdominal. He states having a feeling of malaise, nausea. He denies any right sided abdomen or flank pain. He denies any fevers, chest pain or shortness of breath. Objective - Vital Signs Vital signs: Vital Signs Temp 98.7 F 02/09/20 07:00 Pulse 66 02/09/20 07:00 Resp 16 02/09/20 07:00 BP 174/85 02/09/20 07:00 Pulse Ox 90 L 02/09/20 07:00 Intake & Output 02/08/20 02/09/20 02/09/20 18:59 06:59 18:59 Intake Total 400 Output Total 150 Balance -150 400 Intake: Intake, IV Titration 350 Amount Piperacillin-Tazobactam 3 100 .375 gm In Sodium Chloride 0.9% 100 ml @ 25 mls/hr IVPB Q8HR [facility] Rx# :[id number] Sodium Chloride 0.9% 1, 150 000 ml @ 75 mls/hr IV . [id number] [facility] Rx#:[id number] metroNIDAZOLE-NS PMX 500 100 mg In Saline 1 100ml.bag @ 100 mls/hr IVPB Q8HR [facility] Rx#:[id number] Oral 50 Output: Urine 150 Other: Voiding Method Toilet Urinal # Voids 1 2 2 - Exam palpable femoral pulses bilaterally, good capillary refill - Constitutional General appearance: Present: cooperative, mild distress - EENT Eyes: Present: PERRLA - Cardiovascular Rhythm: regular - Gastrointestinal Gastrointestinal Comment(s): abdomen non tender, no peritoneal signs General gastrointestinal: Present: soft. Absent: distended, tenderness - Psychiatric Psychiatric: Present: A&O x's 3, appropriate affect, intact judgment & insight - Labs CBC & Chem 7: 02/09/20 06:28 02/09/20 06:28 Labs: Abnormal Lab Results - Last 24 Hours (Table) 02/09/20 02/09/20 Range/Units 06:28 06:28 WBC 33.9 H (3.8-10.6) k/uL Plt Count 145 L (150-450) k/uL Neutrophils # (Manual) 29.83 H (1.3-7.7) k/uL Monocytes # (Manual) 2.03 H (0-1.0) k/uL Metamyelocytes # (Man) 0.68 H (0) k/uL Chloride 111 H (96-109) mmol/L BUN 40.0 H (9.0-27.0) mg/dL Creatinine 1.8 H (0.6-1.5) mg/dL Est GFR (CKD-EPI)AfAm 42.0 L (60.0-200.0) Est GFR (CKD-EPI)NonAf 36.3 L (60.0-200.0) BUN/Creatinine Ratio 22.22 H (12.00-20.00) Ratio Glucose 130 H (70-110) mg/dL Calcium 8.6 L (8.7-10.3) mg/dL Microbiology - Last 24 Hours (Table) 02/07/20 15:16 Blood Culture - Preliminary Blood No Growth after 24 hours Assessment and Plan Assessment: 1. left flank pain secondary to renal infarct 2. Occluded left renal artery stent 3. AAA with history of EVAR 4. Type Ib endoleak right iliac limb 5. Leukocytosis secondary to renal infarct Plan: Will need endovascular repair of right iliac limb as outpatient. Will have patient follow up after discharge in the office for scheduled repair. Will re- eval at your request.
[2020-02-09] MEDS ORDERED: DEXAMETHASONE SOD PHOSPHATE 10 MG/ML 1 ML VIAL IV STA (16:08)
[2020-02-09] MEDS: ONDANSETRON 4 MG/2 ML VIAL IVP SCH ×2 (17:00→23:07)
[2020-02-09] MEDS: amLODIPine 5 MG TAB PO SCH (17:00)
[2020-02-09] MEDS: ATORVASTATIN 40 MG TAB PO SCH (17:00)
[2020-02-10] MEDS: ASPIRIN 325 MG TAB PO SCH (05:21)
[2020-02-10] MEDS: ISOSORBIDE MONONITRATE 10 MG TAB PO SCH ×2 (05:21→17:34)
[2020-02-10] MEDS: ONDANSETRON 4 MG/2 ML VIAL IVP SCH ×4 (05:21→23:56)
[2020-02-10 06:06] LABS: Basophils % (A) 0 %; Eosinophils % (A) 0 %; HGB 15.6 gm/dL (13.0-17.5); Lymphocytes % (A) 4 %; MCH 31.5 pg (25.0-35.0); MCHC 32.6 g/dL (31.0-37.0); MCV 96.7 fL (80.0-100.0); Mean Platelet Volume 8.9; Monocytes # (A) 0.9 k/uL (0-1.0); Monocytes % (A) 4 %; Neutrophils # (A) 20.9 k/uL (1.3-7.7); Neutrophils % (A) 91 %; Platelet Count 151 k/uL (150-450); RBC 4.96 m/uL (4.30-5.90); RDW 13.8 % (11.5-15.5)
[2020-02-10] MEDS: HEPARIN SODIUM,PORCINE 5,000 UNIT/ML 1 ML VIAL SQ SCH ×2 (07:18→21:45)
[2020-02-10] MEDS: SIMETHICONE 80 MG CHEWABLE PO SCH ×4 (07:18→21:45)
[2020-02-10] MEDS: metroNIDAZOLE-NS PMX 500 MG in SALINE 1 100ML.BAG IVPB SCH (07:18)
[2020-02-10] MEDS: PIPERACILLIN-TAZOBACTAM 3.375 GM in SODIUM CHLORIDE 0.9% 100 ML IVPB SCH ×3 (07:19→23:56)
[2020-02-10] MEDS: SODIUM CHLORIDE 0.9% 1,000 ML IV SCH ×2 (07:19→21:45)
[2020-02-10 09:25] LABS: Anion Gap 6.2 mmol/L (4.00-12.00); BUN/Creat Ratio 25.29 Ratio (12.00-20.00); Calcium 8.5 mg/dL (8.7-10.3); Carbon Dioxide 21.8 mmol/L (21.6-31.8); Non-African American GFR(CKD) 38.9 (60.0-200.0); Potassium 4.1 mmol/L (3.5-5.5)
--- NOTE | 2020-02-10 14:37 | P.PN ---
Subjective Progress Note Date: 02/10/20 No acute overnight events, left flank pain improving. Denies any nausea or vomiting Objective - Vital Signs Vital signs: Vital Signs Temp 97.8 F 02/10/20 07:00 Pulse 56 L 02/10/20 07:00 Resp 16 02/10/20 07:00 BP 159/80 02/10/20 07:00 Pulse Ox 82 L 02/10/20 13:59 Intake & Output 02/09/20 02/10/20 02/10/20 18:59 06:59 18:59 Intake Total 400 930 Output Total 171 325 780 Balance 229 -325 150 Intake: Intake, IV Titration 350 350 Amount Piperacillin-Tazobactam 3 100 100 .375 gm In Sodium Chloride 0.9% 100 ml @ 25 mls/hr IVPB Q8HR [facility] Rx# :[id number] Sodium Chloride 0.9% 1, 150 150 000 ml @ 75 mls/hr IV . [id number] [facility] Rx#:[id number] metroNIDAZOLE-NS PMX 500 100 100 mg In Saline 1 100ml.bag @ 100 mls/hr IVPB Q8HR [facility] Rx#:[id number] Oral 50 580 Output: Urine 325 780 Post Void Residual 171 Other: Voiding Method Toilet Toilet Urinal Urinal # Voids 2 2 1 - Constitutional General appearance: Present: no acute distress - EENT ENT: Present: hearing grossly normal - Psychiatric Psychiatric: Present: A&O x's 3 - Labs CBC & Chem 7: 02/10/20 05:31 02/10/20 05:31 Labs: Abnormal Lab Results - Last 24 Hours (Table) 02/10/20 02/10/20 Range/Units 05:31 05:31 WBC 23.0 H (3.8-10.6) k/uL Neutrophils # 20.9 H (1.3-7.7) k/uL Chloride 112 H (96-109) mmol/L BUN 43.0 H (9.0-27.0) mg/dL Creatinine 1.7 H (0.6-1.5) mg/dL Est GFR (CKD-EPI)AfAm 45.0 L (60.0-200.0) Est GFR (CKD-EPI)NonAf 38.9 L (60.0-200.0) BUN/Creatinine Ratio 25.29 H (12.00-20.00) Ratio Glucose 116 H (70-110) mg/dL Calcium 8.5 L (8.7-10.3) mg/dL Microbiology - Last 24 Hours (Table) 02/07/20 15:16 Blood Culture - Preliminary Blood No Growth after 48 hours Assessment and Plan Assessment: Mr Carlson is a 74 yo male who is admitted with left lower lower abdominal pain. 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 . Vascular surgery is following the patient . CT also showed a 7 mm non-obstructive renal stone, Plan: -Pain improved today, his pain is mostly secondary to his renal infarct. 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 Pain improved today, his pain is mostly secondary to his renal infarct. -Patient non obstructive stone unlikely to be cause of pain -Can f/u with Urology PRN
--- NOTE | 2020-02-10 15:17 | P.PN ---
Subjective Progress Note Date: 02/10/20 CHIEF COMPLAINT: Left flank abdominal pain HISTORY OF PRESENT ILLNESS: The patient is a 74-year-old male comes in with left inguinal hernia. He complains primarily of left flank pain. Yesterday he had moderately elevated WBC over 33,000 now improved today to 20,000+. He is now passing flatus. He is feeling better. His is at bedside. He tolerated clear liquid diet. ROS: No bowel movements. No fevers or chills. No new chest pain. No productive sputum PHYSICAL EXAM: VITAL SIGNS: Reviewed CONSTITUTIONAL: Well developed and in no acute distress. EYES: Conjuctivae without sclera icterus. Extraocular movements grossly intact. HEAD, EARS, NOSE, THROAT: Moist buccal mucosa. Head is atraumatic, normocephalic. Hears conversational speech. No nasal drainage. NECK: Supple. No thyroidomegaly. RESPIRATORY: Non-labored respirations and equal bilateral excursions. CARDIOVASCULAR: Palpable 2+ radial pulses. ABDOMEN: MUSCULOSKELETAL: No gross deformity of the lower extremities noted. No clubbing. No cyanosis. SKIN: Good skin turgor. Well perfused. NEUROLOGIC: Cranial nerves II through XII grossly intact. No focal or lateralizing signs. PSYCH: Appropriate affect. Alert and oriented to person, place and time. CLINICAL LABS: White blood cell count was 33.9 now down to 23.0. Creatinine elevated 1.26-2.0 now down to 1.8 to 1.7 STUDIES: AXR independently reviewed by me with diffuse gas. No bowel obstruction. ASSESSMENT: 1. Left flank/abdominal pain 2. Leukocytosis 3. Ischemic left kidney PLAN: 1. Advance to full liquid diet 2. Conservative management at this time. Objective - Vital Signs Vital signs: Vital Signs Temp 97.5 F L 02/10/20 15:00 Pulse 79 02/10/20 15:00 Resp 16 02/10/20 15:00 BP 182/71 02/10/20 15:00 Pulse Ox 93 L 02/10/20 15:00 Intake & Output 02/09/20 02/10/20 02/10/20 18:59 06:59 18:59 Intake Total 400 930 Output Total 171 325 780 Balance 229 -325 150 Intake: Intake, IV Titration 350 350 Amount Piperacillin-Tazobactam 3 100 100 .375 gm In Sodium Chloride 0.9% 100 ml @ 25 mls/hr IVPB Q8HR [facility] Rx# :[id number] Sodium Chloride 0.9% 1, 150 150 000 ml @ 75 mls/hr IV . [id number] [facility] Rx#:[id number] metroNIDAZOLE-NS PMX 500 100 100 mg In Saline 1 100ml.bag @ 100 mls/hr IVPB Q8HR [facility] Rx#:[id number] Oral 50 580 Output: Urine 325 780 Post Void Residual 171 Other: Voiding Method Toilet Toilet Urinal Urinal # Voids 2 2 1 - Labs CBC & Chem 7: 02/10/20 05:31 02/10/20 05:31 Labs: Abnormal Lab Results - Last 24 Hours (Table) 02/10/20 02/10/20 Range/Units 05:31 05:31 WBC 23.0 H (3.8-10.6) k/uL Neutrophils # 20.9 H (1.3-7.7) k/uL Chloride 112 H (96-109) mmol/L BUN 43.0 H (9.0-27.0) mg/dL Creatinine 1.7 H (0.6-1.5) mg/dL Est GFR (CKD-EPI)AfAm 45.0 L (60.0-200.0) Est GFR (CKD-EPI)NonAf 38.9 L (60.0-200.0) BUN/Creatinine Ratio 25.29 H (12.00-20.00) Ratio Glucose 116 H (70-110) mg/dL Calcium 8.5 L (8.7-10.3) mg/dL Microbiology - Last 24 Hours (Table) 02/07/20 15:16 Blood Culture - Preliminary Blood No Growth after 48 hours Assessment and Plan (1) Left kidney injury Current Visit: Yes Status: Acute Code(s): S37.002A - UNSPECIFIED INJURY OF LEFT KIDNEY, INITIAL ENCOUNTER SNOMED Code(s): 81584143 (2) Hx of elfmg-orhht-umntpvv bypass Current Visit: Yes Status: Acute Code(s): Z95.828 - PRESENCE OF OTHER VASCULAR IMPLANTS AND GRAFTS SNOMED Code(s): 637732186 (3) Intractable pain Current Visit: Yes Status: Acute Code(s): R52 - PAIN, UNSPECIFIED SNOMED Code(s): 36082377 (4) Left inguinal hernia Current Visit: Yes Status: Acute Code(s): K40.90 - UNIL INGUINAL HERNIA, W/O OBST OR GANGR, NOT SPCF RECUR SNOMED Code(s): 254889021 (5) Leukocytosis Current Visit: Yes Status: Acute Code(s): D72.829 - ELEVATED WHITE BLOOD CELL COUNT, UNSPECIFIED SNOMED Code(s): 263902551
--- NOTE | 2020-02-10 17:13 | P.PN ---
Subjective Patient is doing well today. He is passing gas. Abdominal pain is improving. Objective - Vital Signs Vital signs: Vital Signs Temp 97.5 F L 02/10/20 15:00 Pulse 79 02/10/20 15:00 Resp 16 02/10/20 15:00 BP 182/71 02/10/20 15:00 Pulse Ox 93 L 02/10/20 15:00 Intake & Output 02/09/20 02/10/20 02/10/20 18:59 06:59 18:59 Intake Total 400 930 Output Total 171 325 780 Balance 229 -325 150 Intake: Intake, IV Titration 350 350 Amount Piperacillin-Tazobactam 3 100 100 .375 gm In Sodium Chloride 0.9% 100 ml @ 25 mls/hr IVPB Q8HR [facility] Rx# :[id number] Sodium Chloride 0.9% 1, 150 150 000 ml @ 75 mls/hr IV . [id number] [facility] Rx#:[id number] metroNIDAZOLE-NS PMX 500 100 100 mg In Saline 1 100ml.bag @ 100 mls/hr IVPB Q8HR [facility] Rx#:[id number] Oral 50 580 Output: Urine 325 780 Post Void Residual 171 Other: Voiding Method Toilet Toilet Urinal Urinal # Voids 2 2 1 - Exam General: The patient is awake and alert, in no distress Eye: there is normal conjunctiva bilaterally. Neck: The neck is supple, there is no JVD. Cardiovascular: Normal S1-S2, no S3-S4, no murmurs. Respiratory: Lungs clear to auscultation bilaterally Gastrointestinal: Abdomen is soft and nontender. Nondistended. Musculoskeletal: There is no pedal edema. Neurological:. Speech is normal. Skin: Skin is warm and dry - Labs CBC & Chem 7: 02/10/20 05:31 02/10/20 05:31 Labs: Abnormal Lab Results - Last 24 Hours (Table) 02/10/20 02/10/20 Range/Units 05:31 05:31 WBC 23.0 H (3.8-10.6) k/uL Neutrophils # 20.9 H (1.3-7.7) k/uL Chloride 112 H (96-109) mmol/L BUN 43.0 H (9.0-27.0) mg/dL Creatinine 1.7 H (0.6-1.5) mg/dL Est GFR (CKD-EPI)AfAm 45.0 L (60.0-200.0) Est GFR (CKD-EPI)NonAf 38.9 L (60.0-200.0) BUN/Creatinine Ratio 25.29 H (12.00-20.00) Ratio Glucose 116 H (70-110) mg/dL Calcium 8.5 L (8.7-10.3) mg/dL Microbiology - Last 24 Hours (Table) 02/07/20 15:16 Blood Culture - Preliminary Blood No Growth after 48 hours Assessment and Plan Assessment: This is a 74-year-old male who presented to the emergency room with worsening abdominal pain. Patient was evaluated in the ER and currently admitted to the hospital for further management of his medical problems noted below. 1. Left inguinal hernia, moderate size, with suspected incarceration noted on computed tomography scan of the abdomen. General surgery consulted. No surgical intervention recommended at this time. Patient started on antibiotic empirically for suspected mild diverticulitis proctitis. 2. 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 Vascular surgery consulted for further evaluation. No intervention needed at this time. Plan to follow up outpatient 3. Acute kidney injury, maybe secondary to dehydration and left renal infarct. Continue IV fluid hydration. Creatinine improving slightly. Post void residual with no evidence of retention. Hold nephrotoxic including captopril 4. Left renal nonobstructive 7 mm calculus and approximately 5 cm renal cyst: Seen and evaluated by urology. No intervention needed at this time. 5. Essential hypertension: Blood pressure within acceptable range. Continue current regimen 6. History of coronary artery disease, continue home regimen 7. DVT prophylaxis with subcu heparin Today, I reviewed his medication list and lab work results. Mild ileus on x-ray improving clinically. Encouraged ambulation. Patient is still not passing gas. Continue current regimen otherwise. IV fluid hydration with normal saline at 75 mL per hour. Appreciate quality assurance consultant's recommendations.
[2020-02-10] MEDS: ATORVASTATIN 40 MG TAB PO SCH (17:34)
[2020-02-10] MEDS: amLODIPine 5 MG TAB PO SCH (17:34)
[2020-02-11] MEDS: ASPIRIN 325 MG TAB PO SCH (05:13)
[2020-02-11] MEDS: ISOSORBIDE MONONITRATE 10 MG TAB PO SCH ×2 (05:13→17:28)
[2020-02-11] MEDS: ONDANSETRON 4 MG/2 ML VIAL IVP SCH ×4 (05:13→23:03)
[2020-02-11 06:51] LABS: Basophils % (A) 0 %; Eosinophils % (A) 0 %; HCT 47.7 % (39.0-53.0); HGB 15.6 gm/dL (13.0-17.5); Lymphocytes # (A) 1.3 k/uL (1.0-4.8); Lymphocytes % (A) 7 %; MCH 31.6 pg (25.0-35.0); MCHC 32.8 g/dL (31.0-37.0); MCV 96.3 fL (80.0-100.0); Monocytes # (A) 0.9 k/uL (0-1.0); Monocytes % (A) 5 %; Neutrophils # (A) 16.4 k/uL (1.3-7.7); Neutrophils % (A) 87 %; Platelet Count 157 k/uL (150-450); RBC 4.95 m/uL (4.30-5.90); RDW 13.9 % (11.5-15.5); WBC 18.9 k/uL (3.8-10.6)
[2020-02-11] MEDS: SIMETHICONE 80 MG CHEWABLE PO SCH ×4 (08:04→23:02)
[2020-02-11] MEDS: HEPARIN SODIUM,PORCINE 5,000 UNIT/ML 1 ML VIAL SQ SCH ×2 (08:04→23:03)
[2020-02-11] MEDS: PIPERACILLIN-TAZOBACTAM 3.375 GM in SODIUM CHLORIDE 0.9% 100 ML IVPB SCH ×3 (08:34→23:03)
[2020-02-11] MEDS ORDERED: MAGNESIUM CITRATE 296 ML BOTTLE PO ONE (10:50)
--- NOTE | 2020-02-11 10:52 | P.PN ---
Subjective Progress Note Date: 02/11/20 Principal diagnosis: Abdominal pain Patient doing better than when I saw him last Tuesday. His pain is lessening. Still describes gassy discomfort. Pain in the left flank improved. He is afebrile. White blood cell count improving. No bowel movement since last Tuesday. Passing flatus. Tolerating full liquids. Objective - Vital Signs Vital signs: Vital Signs Temp 98 F 02/11/20 07:00 Pulse 58 L 02/11/20 07:00 Resp 16 02/11/20 07:00 BP 162/82 02/11/20 07:00 Pulse Ox 95 02/11/20 07:00 Intake & Output 02/10/20 02/11/20 02/11/20 18:59 06:59 18:59 Intake Total 1048 Output Total 780 2000 Balance 268 -2000 Intake: Intake, IV Titration 350 Amount Piperacillin-Tazobactam 3 100 .375 gm In Sodium Chloride 0.9% 100 ml @ 25 mls/hr IVPB Q8HR [facility] Rx# :[id number] Sodium Chloride 0.9% 1, 150 000 ml @ 75 mls/hr IV . [id number] [facility] Rx#:[id number] metroNIDAZOLE-NS PMX 500 100 mg In Saline 1 100ml.bag @ 100 mls/hr IVPB Q8HR [facility] Rx#:[id number] Oral 698 Output: Urine 780 2000 Other: Voiding Method Toilet Toilet Urinal Urinal # Voids 1 1 - Exam Abdomen: Soft, nondistended, left-sided tenderness, no rebound or guarding - Labs CBC & Chem 7: 02/11/20 06:16 02/10/20 05:31 Labs: Abnormal Lab Results - Last 24 Hours (Table) 02/11/20 Range/Units 06:16 WBC 18.9 H (3.8-10.6) k/uL Neutrophils # 16.4 H (1.3-7.7) k/uL Microbiology - Last 24 Hours (Table) 02/07/20 15:16 Blood Culture - Preliminary Blood No Growth after 72 hours Assessment and Plan (1) Intractable pain Narrative/Plan: Overall patient improving. Etiology for pain is most likely related to ischemic left kidney. Resume normal diet. Magnesium citrate for constipation. Possible discharge per primary service. Current Visit: Yes Status: Acute Code(s): R52 - PAIN, UNSPECIFIED SNOMED Code(s): 76546231
--- NOTE | 2020-02-11 10:59 | P.DS ---
Providers Date of admission: 02/07/20 15:10 Expected date of discharge: 02/11/20 Attending physician: Marlen Hernández Consults: 02/07/20 15:10 Consult Physician Urgent Consulting Provider: Edmundo Covington Consult Reason/Comments: Left inguinal hernia Do you want consulting provider notified?: Already Contacted 02/07/20 15:11 Consult Physician Urgent Consulting Provider: Raghu Gerardo Consult Reason/Comments: Aortic-iliac graft Do you want consulting provider notified?: Already Contacted 02/08/20 13:15 Consult Physician Routine Consulting Provider: Prasad Peters Consult Reason/Comments: left flank pain Do you want consulting provider notified?: Already Contacted Primary care physician: Chauncey Bullard MD Hospital Course: This is a 74-year-old male who presented to the emergency room with worsening abdominal pain. Patient was evaluated in the ER and currently admitted to the hospital for further management of his medical problems noted below. 1. Left inguinal hernia, moderate size, with suspected incarceration noted on computed tomography scan of the abdomen. General surgery consulted. No surgical intervention recommended at this time. Patient started on antibiotic empirically for suspected mild diverticulitis proctitis. We finish course with oral Augmentin twice daily for 5 more days. 2. 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 Vascular surgery consulted for further evaluation. No intervention needed at this time. Plan to follow up outpatient 3. Acute kidney injury, maybe secondary to dehydration and left renal infarct. Post void residual with no evidence of retention. Hold nephrotoxic including captopril. Advised to follow up with nephrology as an outpatient 4. Left renal nonobstructive 7 mm calculus and approximately 5 cm renal cyst: Seen and evaluated by urology. No intervention needed at this time. 5. Essential hypertension: Blood pressure not well controlled. Captopril was discontinued secondary to worsening kidney function. Increase amlodipine dose to 10 mg daily. 6. History of coronary artery disease, continue home regimen Patient will be discharged home in a stable condition. For further details about this hospitalization please refer to the electronic chart. Time spent on discharge > 30 minutes including counseling and coordination of Patient Condition at Discharge: Stable Plan - Discharge Summary Discharge Rx Participant: Yes New Discharge Prescriptions: New Amoxic-Pot Clav 500-125 mg [Augmentin 500-125 mg] 1 tab PO Q12HR #10 tab amLODIPine [Norvasc] 10 mg PO DAILY #30 tablet Continue atenoloL [Tenormin] 12.5 mg PO DAILY@0530 Atorvastatin [Lipitor] 40 mg PO AC-SUPPER Isosorbide Mononitrate [Ismo] 10 mg PO AC-BID@0530,1730 Multivit-Min/FA/Lycopen/Lutein [Centrum Silver Tablet] 1 tab PO DAILY@1200 Sennosides/Docusate Sodium [Kathie Colace] 1 tab PO DAILY@0530 Ubidecarenone [Co Q-10] 200 mg PO DAILY@1200 Aspirin EC [Ecotrin] 325 mg PO DAILY@0530 Nitroglycerin Sl Tabs [Nitrostat] 0.4 mg SL Q5M PRN PRN Reason: Chest Pain Discontinued captopriL [Capoten] 25 mg PO BID@0530,2100 amLODIPine [Norvasc] 5 mg PO AC-SUPPER Discharge Medication List Atorvastatin [Lipitor] 40 mg PO AC-SUPPER 01/01/18 [History] Isosorbide Mononitrate [Ismo] 10 mg PO AC-BID@0530,1730 01/01/18 [History] Multivit-Min/FA/Lycopen/Lutein [Centrum Silver Tablet] 1 tab PO DAILY@1200 01/01/18 [History] Sennosides/Docusate Sodium [Kathie Colace] 1 tab PO DAILY@0530 01/01/18 [History] Ubidecarenone [Co Q-10] 200 mg PO DAILY@1200 01/01/18 [History] atenoloL [Tenormin] 12.5 mg PO DAILY@0530 01/01/18 [History] Aspirin EC [Ecotrin] 325 mg PO DAILY@0530 02/07/20 [History] Nitroglycerin Sl Tabs [Nitrostat] 0.4 mg SL Q5M PRN 02/07/20 [History] Amoxic-Pot Clav 500-125 mg [Augmentin 500-125 mg] 1 tab PO Q12HR #10 tab 02/11/20 [Rx] amLODIPine [Norvasc] 10 mg PO DAILY #30 tablet 02/11/20 [Rx] Follow up Appointment(s)/Referral(s): Raghu Gerardo DO [STAFF PHYSICIAN] - 2 Weeks None,Stated [REFERRING] - 1-2 days Discharge Disposition: HOME SELF-CARE
--- NOTE | 2020-02-11 11:55 | XR ---
EXAMINATION TYPE: XR chest 2V DATE OF EXAM: 02/11/2020 COMPARISON: 08/03/2012 HISTORY: 74-year-old male increased oxygen requirements, shortness of breath, difficulty breathing TECHNIQUE: PA and lateral views FINDINGS: Heart is borderline enlarged. [id number] left effusion with dense left lower lung opacity. Tra ce effusion on the right as well. Abdominal aortic stent graft. IMPRESSION: 1. Small to moderate left pleural effusion with dense adjacent atelectasis and/or consolidation. 2. Trace right pleural effusion as well.
[2020-02-11 14:16] LABS: African American GFR (CKD) 48.5 (60.0-200.0); Anion Gap 6.9 mmol/L (4.00-12.00); BUN/Creat Ratio 23.13 Ratio (12.00-20.00); Calcium 8.2 mg/dL (8.7-10.3); Carbon Dioxide 21.1 mmol/L (21.6-31.8); Non-African American GFR(CKD) 41.8 (60.0-200.0); Potassium 3.9 mmol/L (3.5-5.5)
[2020-02-11] MEDS: ATORVASTATIN 40 MG TAB PO SCH (17:28)
[2020-02-11] MEDS: amLODIPine 5 MG TAB PO SCH (17:28)
[2020-02-12] MEDS: ISOSORBIDE MONONITRATE 10 MG TAB PO SCH (05:43)
[2020-02-12] MEDS: ASPIRIN 325 MG TAB PO SCH (05:43)
[2020-02-12] MEDS: ONDANSETRON 4 MG/2 ML VIAL IVP SCH ×2 (05:43→12:24)
[2020-02-12 06:58] LABS: Basophils % (A) 0 %; Eosinophils # (A) 0.1 k/uL (0-0.7); Eosinophils % (A) 1 %; HCT 49.1 % (39.0-53.0); HGB 15.8 gm/dL (13.0-17.5); Lymphocytes # (A) 1.8 k/uL (1.0-4.8); Lymphocytes % (A) 13 %; MCHC 32.1 g/dL (31.0-37.0); MCV 96.4 fL (80.0-100.0); Mean Platelet Volume 8.9; Monocytes # (A) 0.7 k/uL (0-1.0); Monocytes % (A) 5 %; Neutrophils # (A) 10.7 k/uL (1.3-7.7); Neutrophils % (A) 79 %; Platelet Count 182 k/uL (150-450); RBC 5.09 m/uL (4.30-5.90); RDW 13.9 % (11.5-15.5); WBC 13.6 k/uL (3.8-10.6)
[2020-02-12 07:31] VITALS: BP 163/84; PULSE 46; RESP 20; TEMP 98.1
[2020-02-12] MEDS: PIPERACILLIN-TAZOBACTAM 3.375 GM in SODIUM CHLORIDE 0.9% 100 ML IVPB SCH (08:18)
[2020-02-12] MEDS: HEPARIN SODIUM,PORCINE 5,000 UNIT/ML 1 ML VIAL SQ SCH (08:18)
[2020-02-12] MEDS: SIMETHICONE 80 MG CHEWABLE PO SCH ×2 (08:18→12:25)
--- NOTE | 2020-02-12 08:23 | CT ---
EXAMINATION TYPE: CT chest wo con DATE OF EXAM: 02/12/2020 COMPARISON: Chest x-ray 02/11/2020, CT 02/07/2020 HISTORY: Left lobe pneumonia CT DLP: 367.9 mGycm. Automated Exposure Control for Dose Reduction was Utilized. TECHNIQUE: CT scan of the thorax is performed without IV contrast. FINDINGS: Lack of intravenous contrast could compromise sensitivity. LUNGS: Air bronchograms are present in the left lower lobe greater than right, there are pleural effu sions left greater than right. Emphysematous changes are noted incidentally. Minimal patchy periphera l density right upper lobe laterally. MEDIASTINUM: Lack of IV contrast is noted to limit evaluation for mediastinal and especially hilar ad enopathy. There are no definitive greater than 1 cm hilar or mediastinal lymph nodes. There are coron bayron artery calcifications. No cardiomegaly, minimal pericardial effusion is seen. OTHER: Aortic stent graft is incidentally noted. Left renal artery stent also present. Exophytic focu s at the. Pole the left kidney measures 4.8 cm and is consistent with cysts. Nonobstructive calculi n oted within the left kidney, the upper pole measures approximately 9 mm. Hyperdensity within the gall bladder may represent tumefactive sludge or likely vicarious excretion of contrast from prior exam. IMPRESSION: Bibasilar effusions, correlate for pneumonia. Coronary artery disease. Noncontrast exam. Nephrolithiasis.
[2020-02-12 09:12] LABS: African American GFR (CKD) 48.5 (60.0-200.0); Anion Gap 6.1 mmol/L (4.00-12.00); BUN/Creat Ratio 23.75 Ratio (12.00-20.00); Calcium 8.5 mg/dL (8.7-10.3); Carbon Dioxide 25.9 mmol/L (21.6-31.8); Non-African American GFR(CKD) 41.8 (60.0-200.0)
--- NOTE | 2020-02-12 14:20 | P.PN ---
Subjective Progress Note Date: 02/12/20 Patient was seen and examined. No acute events overnight. Patient reports improvement in his breathing, able to take deep breaths without any difficulties. Has been ambulating the hallways without difficulties. Does not require oxygen during 6 minute walk test. He denies any chest pain, shortness breath or palpitations. No nausea or vomiting. No fever or chills. Flank pain improved since admission. Objective - Vital Signs Vital signs: Vital Signs Temp 98.1 F 02/12/20 07:00 Pulse 46 L 02/12/20 08:10 Resp 20 02/12/20 08:10 BP 163/84 02/12/20 07:00 Pulse Ox 95 02/12/20 09:49 Intake & Output 02/11/20 02/12/20 02/12/20 18:59 06:59 18:59 Intake Total 592 200 Balance 592 200 Intake: Oral 592 200 Other: Voiding Method Urinal Urinal Toilet Urinal # Voids 1 3 # Bowel Movements 1 - Exam General: [non toxic], [no distress], [appears at stated age] Derm: [warm], [dry] Head: [atraumatic], [normocephalic], [symmetric] Eyes: [EOMI], [no lid lag], [anicteric sclera] Cardiovascular: [S1S2 reg], [no murmur], [positive DP pulse bilateral], Lungs: [CTA bilateral], [no rhonchi, no rales] , [no accessory muscle use] Abdominal: [soft], [ nontender to palpation], [no guarding], [no appreciable organomegaly] Ext: [no gross muscle atrophy], [no edema], [no contractures] Neuro: [no focal neuro deficits] Psych: [Alert], [oriented], [appropriate affect] - Labs CBC & Chem 7: 02/12/20 06:11 02/12/20 06:11 Labs: Abnormal Lab Results - Last 24 Hours (Table) 02/12/20 02/12/20 Range/Units 06:11 06:11 WBC 13.6 H (3.8-10.6) k/uL Neutrophils # 10.7 H (1.3-7.7) k/uL BUN 38.0 H (9.0-27.0) mg/dL Creatinine 1.6 H (0.6-1.5) mg/dL Est GFR (CKD-EPI)AfAm 48.5 L (60.0-200.0) Est GFR (CKD-EPI)NonAf 41.8 L (60.0-200.0) BUN/Creatinine Ratio 23.75 H (12.00-20.00) Ratio Calcium 8.5 L (8.7-10.3) mg/dL Microbiology - Last 24 Hours (Table) 02/07/20 15:16 Blood Culture - Preliminary Blood No Growth after 96 hours Assessment and Plan Assessment: This is a 74-year-old male who presented to the emergency room with worsening abdominal pain. Patient was evaluated in the ER and currently admitted to the hospital for further management of his medical problems noted below. 1. Left inguinal hernia, moderate size, with suspected incarceration noted on computed tomography scan of the abdomen. General surgery consulted. No surgical intervention recommended at this time. Patient started on antibiotic empirically for suspected mild diverticulitis proctitis. We finish course with oral Augmentin twice daily for 5 more days. 2. 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 Vascular surgery consulted for further evaluation. No intervention needed at this time. Plan to follow up outpatient. 3. Acute kidney injury, maybe secondary to dehydration and left renal infarct. Post void residual with no evidence of retention. Hold nephrotoxic including captopril. Advised to follow up with nephrology as an outpatient 4. Left renal nonobstructive 7 mm calculus and approximately 5 cm renal cyst: Seen and evaluated by urology. No intervention needed at this time. 5. Essential hypertension: Blood pressure not well controlled. Captopril was discontinued secondary to worsening kidney function. Increase amlodipine dose to 10 mg daily. 6. History of coronary artery disease, continue home regimen Patient's discharge initially held due to requirements of oxygen. Chest CT shows pleural effusion likely related to infused IVF. Patient passed a 6 minute walk test today and does not require any oxygen with ambulation. Plans on DC home today with pulmonology clearance. This complex discharge took about 40 minutes to complete.
--- NOTE | 2020-02-12 15:11 | P.CNPUL ---
History of Present Illness Consult date: 02/12/20 Reason for consult: pneumonia History of present illness: This is a 74-year-old male patient who presented to the hospital because of pain in the left lower abdomen. This was a crampy pain. He had some nausea and emesis. His white cell count was 20,000. No fever. No chills. The patient also had some pain along the left flank area. CAT scan of the abdomen was done in the ED and the patient was found to have a moderate-sized fat-containing left inguinal hernia measuring 12.5 x 5.3 cm in size extending into the scrotal sac. There was some mass effect on the inguinal ring that may have reflected incarceration. No inflammatory changes to suggest strangulation. Also, the patient was found to have an abdominal biiliac endovascular stent graft, unchanged in size compared to previous films, and the left renal artery stent was present but there was no arterial blood flow beyond the stent suggesting a total/complete left renal artery occlusion given the absence of opacification of the left kidney. During this current admission, the patient was seen by general surgery and no surgical intervention was recommended. 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 The patient was about to get discharged home when he was found to be hypoxic and a pulmonary consultation was requested. A repeat chest exit was on 02/11/2028 showed a left lower lobe consolidation. Based on that, I ordered a CAT scan of the chest that was done this morning at around 8:16 AM and the patient had an extensive consolidation of left lower lobe in addition to small better pleural effusion, not amenable to thoracentesis. The patient was eating IV Zosyn since admission. Note that despite this consolidation, the patient not having any respiratory distress and the patient is pulse oxing around 95% on room air. He was ambulated in the hallway and he maintained a pulse ox above 90%. Temperature is well maintained and the patient is afebrile. No tachycardia. No labored breathing. No tachypnea. The white cell count is gradually improving is down to 13.6. No reported aspiration. No reported pleurisy. No reported hemoptysis. No reported aspiration. Review of Systems Constitutional: Denies chills, Denies fever Eyes: denies as per HPI, denies blurred vision, denies bulging eye, denies decreased vision, denies diplopia, denies discharge, denies dry eye, denies irritation, denies itching, denies pain, denies photophobia, denies loss of peripheral vision, denies loss of vision, denies tunnel vision/blind spots Ears: deny: decreased hearing, ear discharge, earache, tinnitus Ears, nose, mouth and throat: Denies headache, Denies sore throat Breasts: absent: as per HPI, gynecomastia Cardiovascular: Reports shortness of breath Respiratory: Reports as per HPI Gastrointestinal: Reports as per HPI, Reports abdominal pain Genitourinary: Reports as per HPI Musculoskeletal: Reports as per HPI Musculoskeletal: absent: ankle pain, ankle stiffness, ankle swelling Integumentary: Reports as per HPI Neurological: Reports as per HPI Psychiatric: Reports as per HPI Endocrine: Reports as per HPI Hematologic/Lymphatic: Reports as per HPI Allergic/Immunologic: Reports as per HPI Past Medical History Past Medical History: Cancer, Myocardial Infarction (NM) Additional Past Medical History / Comment(s): Abdominal aortic aneurysm post endovascular stent grafting, prostate cancer, coronary artery disease with previous NM, hyperlipidemia, hypertension, kidney stone, nonobstructive Last Myocardial Infarction Date:: 2007 History of Any Multi-Drug Resistant Organisms: None Reported Past Surgical History: Heart Catheterization With Stent, Prostate Surgery Past Anesthesia/Blood Transfusion Reactions: Postoperative Nausea & Vomiting (PONV) Date of Last Stent Placement:: 2007 Past Psychological History: No Psychological Hx Reported Smoking Status: Current every day smoker Past Alcohol Use History: None Reported Past Drug Use History: None Reported Medications and Allergies Home Medications Medication Instructions Recorded Confirmed Type Atorvastatin [Lipitor] 40 mg PO AC-SUPPER 01/01/18 02/07/20 History Isosorbide Mononitrate [Ismo] 10 mg PO AC-BID@0530,1730 01/01/18 02/07/20 History Multivit-Min/FA/Lycopen/Lutein 1 tab PO DAILY@1200 01/01/18 02/07/20 History [Centrum Silver Tablet] Sennosides/Docusate Sodium [Kathie 1 tab PO DAILY@0530 01/01/18 02/07/20 History Colace] Ubidecarenone [Co Q-10] 200 mg PO DAILY@1200 01/01/18 02/07/20 History atenoloL [Tenormin] 12.5 mg PO DAILY@0530 01/01/18 02/07/20 History Aspirin EC [Ecotrin] 325 mg PO DAILY@0530 02/07/20 02/07/20 History Nitroglycerin Sl Tabs [Nitrostat] 0.4 mg SL Q5M PRN 02/07/20 02/07/20 History Amoxic-Pot Clav 500-125 mg 1 tab PO Q12HR #10 tab 02/11/20 Rx [Augmentin 500-125 mg] amLODIPine [Norvasc] 10 mg PO DAILY #30 tablet 02/11/20 Rx Allergies Allergy/AdvReac Type Severity Reaction Status Date / Time clopidogrel [From Plavix] Allergy Rash/Hives Verified 02/07/20 15:31 codeine Allergy Chest Pain Verified 02/07/20 15:31 fentanyl Allergy Rash/Hives Verified 02/07/20 15:31 Physical Exam Vitals: Vital Signs Temp Pulse Resp BP BP Pulse Ox Pulse Ox 02/12/20 09:49 96 02/12/20 08:10 46 L 20 02/12/20 07:00 98.1 F 46 L 20 163/84 96 02/12/20 04:05 18 02/12/20 02:14 97.9 F 52 L 18 169/85 94 L 02/12/20 00:15 16 02/11/20 19:58 98.3 F 68 16 166/87 94 L 02/11/20 19:10 16 02/11/20 15:00 97.9 F 52 L 16 175/89 94 L Pulse Ox Pulse Ox 02/12/20 09:49 95 95 02/12/20 08:10 02/12/20 07:00 02/12/20 04:05 02/12/20 02:14 02/12/20 00:15 02/11/20 19:58 02/11/20 19:10 02/11/20 15:00 Intake and Output 02/11/20 02/12/20 02/12/20 22:59 06:59 14:59 Intake Total 296 200 Balance 296 200 Intake: Oral 296 200 Other: Voiding Method Urinal Toilet Urinal # Voids 2 3 # Bowel Movements 1 Gen. appearance the patient is calm comfortable and the patient is not in acute respiratory distress Head exam was generally normal. There was no scleral icterus or corneal arcus. Mucous membranes were moist. Neck was supple and without jugular venous distension, thyromegaly, or carotid bruits. Carotids were easily palpable bilaterally. There was no adenopathy. Lungs sounds are diminished left lung base along with that there is bronchial breath sounds and positive egophony. No wheezes. No rhonchi. Cardiac exam revealed the PMI to be normally situated and sized. The rhythm was regular and no extrasystoles were noted during several minutes of auscultation. The first and second heart sounds were normal and physiologic splitting of the second heart sound was noted. There were no murmurs, rubs, clicks, or gallops. Abdominal exam revealed normal bowel sounds. The abdomen was soft, non-tender, and without masses, organomegaly, or appreciable enlargement of the abdominal aorta. Examination of the extremities revealed easily palpable radial, femoral and pedal pulses. There was no cyanosis, clubbing or edema. Examination of the skin revealed no evidence of significant rashes, suspicious appearing nevi or other concerning lesions. Neurologically, the patient is awake and alert and the patient does not have any focal neurological deficit. Cranial nerves are essentially intact. Results - Laboratory Findings CBC and BMP: 02/12/20 06:11 02/12/20 06:11 PT/INR, D-dimer PT 10.0 sec (9.0-12.0) 02/07/20 12:00 INR 1.0 (<1.2) 02/07/20 12:00 Abnormal lab findings: Abnormal Labs 02/07/20 02/07/20 02/07/20 12:00 12:06 12:27 WBC 20.5 H Plt Count Neutrophils # 17.6 H Neutrophils # (Manual) Monocytes # (Manual) Metamyelocytes # (Man) Chloride 108 H Carbon Dioxide BUN 21 H Creatinine 1.26 H Est GFR (CKD-EPI)AfAm Est GFR (CKD-EPI)NonAf BUN/Creatinine Ratio Glucose 161 H Calcium Urine Protein Trace H Amorphous Sediment Moderate H 02/08/20 02/08/20 02/09/20 06:51 06:51 06:28 WBC 20.9 H 33.9 H Plt Count 142 L 145 L Neutrophils # 18.3 H Neutrophils # (Manual) 29.83 H Monocytes # (Manual) 2.03 H Metamyelocytes # (Man) 0.68 H Chloride Carbon Dioxide BUN 29.0 H Creatinine 2.0 H Est GFR (CKD-EPI)AfAm 37.0 L Est GFR (CKD-EPI)NonAf 31.9 L BUN/Creatinine Ratio Glucose 135 H Calcium Urine Protein Amorphous Sediment 02/09/20 02/10/20 02/10/20 06:28 05:31 05:31 WBC 23.0 H Plt Count Neutrophils # 20.9 H Neutrophils # (Manual) Monocytes # (Manual) Metamyelocytes # (Man) Chloride 111 H 112 H Carbon Dioxide BUN 40.0 H 43.0 H Creatinine 1.8 H 1.7 H Est GFR (CKD-EPI)AfAm 42.0 L 45.0 L Est GFR (CKD-EPI)NonAf 36.3 L 38.9 L BUN/Creatinine Ratio 22.22 H 25.29 H Glucose 130 H 116 H Calcium 8.6 L 8.5 L Urine Protein Amorphous Sediment 02/11/20 02/11/20 02/12/20 06:16 06:16 06:11 WBC 18.9 H 13.6 H Plt Count Neutrophils # 16.4 H 10.7 H Neutrophils # (Manual) Monocytes # (Manual) Metamyelocytes # (Man) Chloride 111 H Carbon Dioxide 21.1 L BUN 37.0 H Creatinine 1.6 H Est GFR (CKD-EPI)AfAm 48.5 L Est GFR (CKD-EPI)NonAf 41.8 L BUN/Creatinine Ratio 23.13 H Glucose Calcium 8.2 L Urine Protein Amorphous Sediment 02/12/20 06:11 WBC Plt Count Neutrophils # Neutrophils # (Manual) Monocytes # (Manual) Metamyelocytes # (Man) Chloride Carbon Dioxide BUN 38.0 H Creatinine 1.6 H Est GFR (CKD-EPI)AfAm 48.5 L Est GFR (CKD-EPI)NonAf 41.8 L BUN/Creatinine Ratio 23.75 H Glucose Calcium 8.5 L Urine Protein Amorphous Sediment - Diagnostic Findings Chest x-ray: image reviewed CT scan - chest: image reviewed Assessment and Plan Plan: 1 left lower lobe consolidation with small effusion. Consider pneumonia with extensive consolidation of the left lower lobe. Reactive left-sided pleural ef fusion due to left renal infarct is possible that I favor an underlying bacterial pneumonia involving the left lower lobe. 2 acute hypoxic respiratory failure, improving and the patient is currently on room air oxygen and pulse ox is above 90% 3 acute occlusion of the left renal stent with of significant infarction of the left kidney and secondary flank pain 4 left inguinal hernia without any signs of incarceration or strangulation. Evaluated by general surgery 5 abdominal aortic aneurysm with previous endovascular stent grafting 6 left adrenal nonobstructive calculus measuring 7 mm in size 7 left renal cyst 8 hypertension 9 coronary artery disease with previous cardiac catheterization and stenting 10 leukocytosis, improving Plan The patient has significant consolidation of the left lower lobe. I was concerned and it made recommendations keep the patient hospital for another 24 hours for monitoring and IV antibiotics. The patient wanted to get home as soon as possible as the patient was feeling better. I noted the x-ray. I am a bit concerned about this left lower lobe consolidation and the circumstances occurred when the patient came in with the left renal infarct and issues related to a left inguinal hernia. In any rate, I agreed on sending this patient home on Augmentin with close follow-up and I would like to see him back in the office for a follow-up chest x-ray early next week. We'll continue to follow. I advised the patient coming back to the hospital should there be any worsening
== END 2020-02-12 15:54 | disposition home or self-care (01) | DRG 393 ==
LOC: EC 11:40 → 4SSUR 15:10
PROVIDERS: ADMIT Internal Medicine; ATTEND Internal Medicine
PROC: B41D1ZZ Fluoroscopy of Aorta and Bilateral Lower Extremity Arteries using Low Osmolar Contrast (ICD-10-PCS; principal; 2020-02-07)
DX: K40.30 Unilateral inguinal hernia, with obstruction, without gangrene, not specified as recurrent (principal); J96.01 Acute respiratory failure with hypoxia; J18.9 Pneumonia, unspecified organism; K57.32 Diverticulitis of large intestine without perforation or abscess without bleeding; T82.310A Breakdown (mechanical) of aortic (bifurcation) graft (replacement), initial encounter; N28.0 Ischemia and infarction of kidney; T83.85XA Stenosis due to genitourinary prosthetic devices, implants and grafts, initial encounter; N17.9 Acute kidney failure, unspecified; J90 Pleural effusion, not elsewhere classified; K56.7 Ileus, unspecified; K62.89 Other specified diseases of anus and rectum; I25.10 Atherosclerotic heart disease of native coronary artery without angina pectoris; I25.2 Old myocardial infarction; Y71.2 Prosthetic and other implants, materials and accessory cardiovascular devices associated with adverse incidents; N28.1 Cyst of kidney, acquired; N20.0 Calculus of kidney; E78.5 Hyperlipidemia, unspecified; F17.210 Nicotine dependence, cigarettes, uncomplicated; I10 Essential (primary) hypertension; Z86.79 Personal history of other diseases of the circulatory system; Z79.82 Long term (current) use of aspirin; Z79.899 Other long term (current) drug therapy; Z85.46 Personal history of malignant neoplasm of prostate; Z87.442 Personal history of urinary calculi; K59.00 Constipation, unspecified; E86.0 Dehydration; Z88.5 Allergy status to narcotic agent; Z88.8 Allergy status to other drugs, medicaments and biological substances; E27.8 Other specified disorders of adrenal gland
CPT/HCPCS: 36415; 71046; 71250; 74019; 75635; 80048; 80053; 81001; 82150; 82550; 83605; 83690; 83735; 84484; 85025; 85610; 85730; 86850; 86900; 86901; 87040; 96365; 96375; 96376; 99285

== ENCOUNTER 2020-03-11 06:13 | Inpatient (IN) | payer MEDICARE ==
[2020-03-06 15:21] VITALS: BMI 24.5
[2020-03-11] MEDS ORDERED: SODIUM CHLORIDE 0.9% 1,000 ML in EMPTY BAG 1 BAG IV ONE (06:21)
[2020-03-11 06:48] LABS: Basophils # (A) 0.1 k/uL (0-0.2); Basophils % (A) 1 %; Eosinophils # (A) 0.7 k/uL (0-0.7); Eosinophils % (A) 6 %; HCT 51.1 % (39.0-53.0); HGB 16.9 gm/dL (13.0-17.5); Lymphocytes # (A) 3.4 k/uL (1.0-4.8); Lymphocytes % (A) 30 %; MCH 31.2 pg (25.0-35.0); MCHC 33.1 g/dL (31.0-37.0); MCV 94.2 fL (80.0-100.0); Monocytes # (A) 0.8 k/uL (0-1.0); Monocytes % (A) 7 %; Neutrophils % (A) 53 %; Platelet Count 207 k/uL (150-450); RBC 5.42 m/uL (4.30-5.90); RDW 13.6 % (11.5-15.5); WBC 11.5 k/uL (3.8-10.6)
[2020-03-11 06:57] LABS: Calcium 9.6 mg/dL (8.4-10.2); Potassium 4.2 mmol/L (3.5-5.1)
[2020-03-11] MEDS ORDERED: MIDAZOLAM 2 MG/2 ML VIAL IV ONE (07:29)
[2020-03-11] MEDS ORDERED: fentaNYL (PF) 50 MCG/ML 2 ML AMP IV ONE (07:30)
[2020-03-11] MEDS ORDERED: LIDOCAINE 1% INJ 10MG/ML (20 ML MDV) SQ ONE (07:33)
[2020-03-11] MEDS ORDERED: HYDROmorphone 0.5 MG/0.5 ML SYRINGE IVP ONE ×2 (07:37→07:53)
[2020-03-11] MEDS ORDERED: HEPARIN SODIUM 1,000 UN/ML (10ML VL) IV ONE (07:45)
[2020-03-11] MEDS ORDERED: IOPAMIDOL-250 100ML BTL INTRAARTER ONE (08:09)
[2020-03-11] MEDS ORDERED: IOPAMIDOL-250 50ML BTL INTRAARTER ONE (08:10)
[2020-03-11] MEDS ORDERED: ONDANSETRON 4 MG/2 ML VIAL ONE (08:21)
--- NOTE | 2020-03-11 08:25 | P.OP ---
Date of Procedure: 03/11/20 Preoperative Diagnosis: AAA with Type Ib endoleak at right iliac limb Postoperative Diagnosis: Same Procedure(s) Performed: Percutaneous Type Ib endoleak repair with extension of right iliac limb Ultrasound guided access of right femoral artery Aortogram with selective right iliofemoral angiogram Moderate conscious sedation x 38 mins Implants: Ovation [id number] limb Anesthesia: local Surgeon: Raghu Gerardo Estimated Blood Loss (ml): 5 Pathology: none sent Condition: stable Disposition: PACU Indications for Procedure: 74 year old male with history of AAA with EVAR presented after routine followup with enlarging AAA and endoleak noted on CTA with the right iliac limb retracting to the aorta. He presents today for endovascular repair. Description of Procedure: After written and informed consent was obtained from the patient and all risks, benefits, and complications were described the patient was brought to the cathead worker and laid in a supine position. The area of the right groin was prepped and draped in usual sterile fashion. Timeout was performed in normal fashion antibiotics were administered prior to accessed. Utilizing ultrasound the right common femoral artery was located and no significant stenosis or calcification was noted. Utilizing Seldinger technique and a multipurpose needle a 6-[place]an sheath was placed. Retrograde angiogram was then obtained demonstrating retracted iliac limb. 2 Perclose closure devices were then placed and the sheath was upsized to a 8-[place]an sheath. Utilizing an 035 Glidewire the iliac limb was accessed and a pigtail catheter was placed above the aortic graft and angiogram was obtained demonstrating no evidence of a type IA endoleak. The left renal stent was occluded but had re-constitution of flow distal to the kidney. At that time measurements were obtained and a stiff wire was placed in the pigtail. Patient was administered heparin at that time. A 16 x 140 mm limb was chosen to be placed and deployed in normal fashion after removal of the 8-Sing[place]an sheath. Once completed another aortogram and retrograde angiogram was obtained demonstrating good placement of the iliac limb. All guidewires and catheters were then removed and Perclose closure device was secured. The area was then cleansed and dressings were placed. Patient tolerated procedure well and had palpable DP pulse at the conclusion of procedure. Plan - Discharge Summary Discharge Rx Participant: No New Discharge Prescriptions: No Action atenoloL [Tenormin] 12.5 mg PO DAILY Atorvastatin [Lipitor] 40 mg PO W/SUPPER Isosorbide Mononitrate [Ismo] 10 mg PO BID-W/MEALS Multivit-Min/FA/Lycopen/Lutein [Centrum Silver Tablet] 1 tab PO DAILY Sennosides/Docusate Sodium [Kathie Colace] 1 tab PO DAILY Ubidecarenone [Co Q-10] 200 mg PO DAILY Aspirin EC [Ecotrin] 325 mg PO DAILY Nitroglycerin Sl Tabs [Nitrostat] 0.4 mg SL Q5M PRN PRN Reason: Chest Pain amLODIPine [Norvasc] 5 mg PO DAILY@1500 captopriL [Captopril] 12.5 mg PO BID Discharge Medication List Atorvastatin [Lipitor] 40 mg PO W/SUPPER 01/01/18 [History] Isosorbide Mononitrate [Ismo] 10 mg PO BID-W/MEALS 01/01/18 [History] Multivit-Min/FA/Lycopen/Lutein [Centrum Silver Tablet] 1 tab PO DAILY 01/01/18 [History] Sennosides/Docusate Sodium [Kathie Colace] 1 tab PO DAILY 01/01/18 [History] Ubidecarenone [Co Q-10] 200 mg PO DAILY 01/01/18 [History] atenoloL [Tenormin] 12.5 mg PO DAILY 01/01/18 [History] Aspirin EC [Ecotrin] 325 mg PO DAILY 02/07/20 [History] Nitroglycerin Sl Tabs [Nitrostat] 0.4 mg SL Q5M PRN 02/07/20 [History] amLODIPine [Norvasc] 5 mg PO DAILY@1500 03/06/20 [History] captopriL [Captopril] 12.5 mg PO BID 03/06/20 [History] Follow up Appointment(s)/Referral(s): Raghu Gerardo DO [STAFF PHYSICIAN] - 4 Weeks Discharge Disposition: HOME SELF-CARE
[2020-03-11] MEDS ORDERED: ONDANSETRON 4 MG/2 ML VIAL IVP STA (08:50)
[2020-03-11] MEDS ORDERED: amLODIPine 5 MG TAB PO STA (14:13)
[2020-03-11] MEDS ORDERED: ONDANSETRON 4 MG/2 ML VIAL IVP PRN (14:33)
[2020-03-11] MEDS ORDERED: ONDANSETRON 4 MG/2 ML VIAL IVP ONE (14:36)
--- NOTE | 2020-03-11 15:28 | IR ---
EXAMINATION TYPE: IR endorepair DATE OF EXAM: 03/11/2020 CLINICAL HISTORY: Endoleak repair TECHNIQUE: Fluoroscopy. COMPARISON: None. FINDINGS: Fluoroscopic guidance was provided during procedure for performing physician. A total of 6 .9 minutes of fluoroscopic time was utilized during the procedure and 160 images was acquired. Please see operative report for additional details. IMPRESSION: As Above.
--- NOTE | 2020-03-11 18:36 | P.PN ---
Progress Note - Text Progress Note Date: 03/11/20 patient was seen and examined at the bedside. His nausea and vomiting has resolved and he is feeling much better. We discussed options including staying overnight versus possible discharge home today. He would like to try to get up and walk around and if he tolerates movements and is feeling better he is then okay for discharge. I discussed this with his is well who will have someone pick him up if he is stable.
[2020-03-12 00:09] VITALS: RESP 16
[2020-03-12 04:11] VITALS: BP 171/90; PULSE 67; TEMP 97.8
--- NOTE | 2020-03-12 07:46 | P.PN ---
Progress Note - Text Progress Note Date: 03/12/20 Patient seen and examined. Doing well. States ready to go home. Has no nausea, vomiting this morning and has been up walking several times. VSS, Afebrile Right groin clean, dry and intact. no sign of hematoma or infection. Palpable DP pulses bilaterally. A/P: POD 1 AAA Endoleak repair with iliac extension on the right. Nausea resolved - ok for discharge home this morning. Follow up in office in 2-4 weeks.
== END 2020-03-12 09:03 | disposition home or self-care (01) | DRG 316 ==
LOC: 2ORMAIN 06:13 → 3SCARD 14:51
PROVIDERS: ADMIT Surgery; ATTEND Surgery
PROC: B41F1ZZ Fluoroscopy of Right Lower Extremity Arteries using Low Osmolar Contrast (ICD-10-PCS; principal; 2020-03-11 07:30)
PROC: 04WY3DZ Revision of Intraluminal Device in Lower Artery, Percutaneous Approach (ICD-10-PCS; principal; 2020-03-11 07:30)
DX: T82.310A Breakdown (mechanical) of aortic (bifurcation) graft (replacement), initial encounter (principal); N18.30 Chronic kidney disease, stage 3 unspecified; E78.2 Mixed hyperlipidemia; I71.4 Abdominal aortic aneurysm, without rupture; J44.9 Chronic obstructive pulmonary disease, unspecified; M06.9 Rheumatoid arthritis, unspecified; R11.2 Nausea with vomiting, unspecified; I48.91 Unspecified atrial fibrillation; I73.9 Peripheral vascular disease, unspecified; I12.9 Hypertensive chronic kidney disease with stage 1 through stage 4 chronic kidney disease, or unspecified chronic kidney disease; N40.0 Benign prostatic hyperplasia without lower urinary tract symptoms; I25.10 Atherosclerotic heart disease of native coronary artery without angina pectoris; K40.90 Unilateral inguinal hernia, without obstruction or gangrene, not specified as recurrent; I25.2 Old myocardial infarction; G47.30 Sleep apnea, unspecified; K21.9 Gastro-esophageal reflux disease without esophagitis; M48.00 Spinal stenosis, site unspecified; G89.29 Other chronic pain; M54.9 Dorsalgia, unspecified; R91.8 Other nonspecific abnormal finding of lung field; Y71.2 Prosthetic and other implants, materials and accessory cardiovascular devices associated with adverse incidents; Z87.891 Personal history of nicotine dependence; Z87.01 Personal history of pneumonia (recurrent); Z90.5 Acquired absence of kidney; Z90.49 Acquired absence of other specified parts of digestive tract; Z98.49 Cataract extraction status, unspecified eye; Z96.1 Presence of intraocular lens; Z87.19 Personal history of other diseases of the digestive system; Z95.5 Presence of coronary angioplasty implant and graft; Z85.528 Personal history of other malignant neoplasm of kidney; Z86.711 Personal history of pulmonary embolism; Z96.82 Presence of neurostimulator; Z86.79 Personal history of other diseases of the circulatory system; Z98.890 Other specified postprocedural states; Z83.3 Family history of diabetes mellitus; Z80.42 Family history of malignant neoplasm of prostate
CPT/HCPCS: 34710; 80048; 85025; 86850; 86900; 86901

== ENCOUNTER → 2020-04-25 | Outpatient (CLI) | payer MEDICARE ==
--- NOTE | 2020-04-25 15:19 | US ---
EXAMINATION TYPE: US kidneys/renal and bladder DATE OF EXAM: 04/25/2020 [place] [facility] [place] CLINICAL HISTORY: N18.9 Chronic kidney disease. EXAM MEASUREMENTS: Right Kidney: 10.8 x 5.6 x 6.5 cm Left Kidney: 8.4 x 5.3 x 4.2 cm Right Kidney: upper pole cyst measures 3.1 x 2.6 x 2.8 cm Left Kidney: Lower pole cyst measures 5.2 x 5.4 x 4.9 cm, and upper pole cyst measures 4.3 x 2.9 x 3. 9 cm. Atrophied. Bladder: wnl Bilateral Jets seen: Only right jet seen. IMPRESSION: 1. Bilateral simple appearing renal cysts.
[2020-04-25 16:33] LABS: Appearance,Urine Clear (Clear); Bilirubin,Urine Negative (Negative); Blood,Urine Negative (Negative); Color,Urine Colorless; Glucose,Urine (UA) Negative (Negative); Ketones,Urine Negative (Negative); Leukocyte Esterase,Urine Negative (Negative); Nitrite,Urine Negative (Negative); PH, Urine 6.5 (5.0-8.0); Protein,Urine Negative (Negative); Specific Gravity,Urine 1.002 (1.001-1.035); Urobilinogen,Urine <2.0 mg/dL (<2.0)
[2020-04-25 16:36] LABS: Albumin 3.9 g/dL (3.5-5.0); Calcium 9.5 mg/dL (8.4-10.2); Magnesium 1.9 mg/dL (1.6-2.3); Phosphorus 4.7 mg/dL (2.5-4.5); Potassium 4.7 mmol/L (3.5-5.1); Total Bilirubin 0.7 mg/dL (0.2-1.3); Uric Acid 5.9 mg/dL (3.5-8.5)
[2020-04-25 16:44] LABS: HCT 43.6 % (39.0-53.0); HGB 14.7 gm/dL (13.0-17.5); MCH 30.9 pg (25.0-35.0); MCHC 33.8 g/dL (31.0-37.0); MCV 91.5 fL (80.0-100.0); Mean Platelet Volume 8.1; Platelet Count 194 k/uL (150-450); RBC 4.77 m/uL (4.30-5.90); RDW 14.1 % (11.5-15.5); WBC 10.5 k/uL (3.8-10.6)
[2020-04-26 01:20] LABS: Urine Creatinine 15.9 mg/dL
[2020-04-26 02:38] LABS: % Iron Saturation 36.08 (15.00-50.00)
[2020-04-26 02:57] LABS: Ferritin 302.8 ng/mL (22.0-322.0)
== END | disposition home or self-care (01) ==
LOC: RADUSWWP 14:45
PROVIDERS: ATTEND Internal Medicine
DX: N28.1 Cyst of kidney, acquired (principal); N18.9 Chronic kidney disease, unspecified; D63.1 Anemia in chronic kidney disease; N39.0 Urinary tract infection, site not specified; N25.81 Secondary hyperparathyroidism of renal origin; E55.9 Vitamin D deficiency, unspecified; M10.9 Gout, unspecified; R80.9 Proteinuria, unspecified
CPT/HCPCS: 36415; 76770; 80053; 81003; 82043; 82306; 82570; 82728; 83540; 83550; 83735; 83970; 84100; 84550; 85027

== ENCOUNTER → 2021-07-08 | Outpatient (CLI) | payer MEDICARE ==
--- NOTE | 2021-07-08 15:58 | US ---
EXAMINATION TYPE: US kidneys/renal and bladder DATE OF EXAM: 07/08/2021 COMPARISON: NONE CLINICAL HISTORY: N18.31 Chronic kidney disease, stage 3a. known cysts, CKD EXAM MEASUREMENTS: Right Kidney: 10.9 x 6.0 x 5.8 cm Left Kidney: 6.0 x 2.9 x 3.5 cm Right Kidney: 3.4 x 3.1 x 2.5cm superior pole cyst Left Kidney: atrohpic, 2 cysts, largest = 4.0 x 4.2 x 4.3cm Bladder: wnl Bilateral Jets seen: yes IMPRESSION: 1. Bilateral renal cysts.
== END | disposition home or self-care (01) ==
LOC: RADUSWWP 14:52
PROVIDERS: ATTEND Internal Medicine
DX: N28.1 Cyst of kidney, acquired (principal)
CPT/HCPCS: 76770

== ENCOUNTER 2022-03-11 20:06 | Emergency (ER) | payer MEDICARE ==
[2022-03-11 20:17] VITALS: RESP 16; TEMP 97.7
[2022-03-11] MEDS ORDERED: SODIUM CHLORIDE 0.9% 1,000 ML IV STA ×2 (20:32→21:48)
[2022-03-11] MEDS ORDERED: ONDANSETRON 4 MG/2 ML VIAL IVP STA (20:32)
[2022-03-11] MEDS ORDERED: HYDROmorphone 0.5 MG/0.5 ML SYRINGE IVP STA (20:33)
--- NOTE | 2022-03-11 20:35 | ED ---
General Adult HPI - General Source: patient, RN notes reviewed Mode of arrival: EMS Limitations: no limitations <Nora Sandoval - Last Filed: 03/11/22 22:03> <Asim Hassan - Last Filed: 03/12/22 00:18> - General Chief complaint: Abdominal Pain Stated complaint: Abd Pain Time Seen by Provider: 03/11/22 20:21 - History of Present Illness Initial comments: 76 from male presents to the emergency Department with complaints of left flank pain that radiates to the left lower abdomen, onset 90 minutes prior to arrival. Patient states pain came on suddenly and was on precipitated. Reports it was accompanied by nausea and vomiting. States he attempted to take Motrin before he got here but vomited afterwards. Endorses a history of kidney stones on the affected side. States pain is worsened with palpation, repositioning, and movement. Denies fever, chills, headache, chest pain, shortness of breath, diarrhea, constipation, dysuria, or hematuria. (Nora Sandoval) - Related Data Home Medications Medication Instructions Recorded Confirmed Atorvastatin [Lipitor] 40 mg PO W/SUPPER 01/01/18 03/11/20 Isosorbide Mononitrate [Ismo] 10 mg PO BID-W/MEALS 01/01/18 03/11/20 Multivit-Min/FA/Lycopen/Lutein 1 tab PO DAILY 01/01/18 03/11/20 [Centrum Silver Tablet] Sennosides/Docusate Sodium [Kathie 1 tab PO DAILY 01/01/18 03/11/20 Colace] Ubidecarenone [Co Q-10] 200 mg PO DAILY 01/01/18 03/11/20 atenoloL [Tenormin] 12.5 mg PO DAILY 01/01/18 03/11/20 Aspirin EC [Ecotrin] 325 mg PO DAILY 02/07/20 03/11/20 Nitroglycerin Sl Tabs [Nitrostat] 0.4 mg SL Q5M PRN 02/07/20 03/11/20 amLODIPine [Norvasc] 5 mg PO DAILY@1500 03/06/20 03/11/20 captopriL [Captopril] 12.5 mg PO BID 03/06/20 03/11/20 Allergies Allergy/AdvReac Type Severity Reaction Status Date / Time fentanyl Allergy Severe Red Blue Verified 03/11/22 20:17 Large Bruises clopidogrel [From Plavix] Allergy BLOOD Verified 03/11/22 20:17 BLISTERS codeine Allergy Chest Pain Verified 03/11/22 20:17 Review of Systems ROS Other: All systems not noted in ROS Statement are negative. <Nora Sandoval - Last Filed: 03/11/22 22:03> ROS Other: All systems not noted in ROS Statement are negative. <Asim Hassan - Last Filed: 03/12/22 00:18> ROS Statement: Those systems with pertinent positive or pertinent negative responses have been documented in the HPI. Past Medical History Past Medical History: Coronary Artery Disease (CAD), Cancer, Hyperlipidemia, Myocardial Infarction (ND), Pneumonia Additional Past Medical History / Comment(s): Abdominal aortic aneurysm post endovascular stent grafting, left renal artery stent., prostate cancer, kidney stone, Hx cholecystitis, current left inguinal hernia, Hospitalized at [facility] 02/06to 02/12/20 with leaking aneurysm,blockage to kidney ,left inguinal hernia and pneumonia. Last Myocardial Infarction Date:: 1993 History of Any Multi-Drug Resistant Organisms: None Reported Past Surgical History: Heart Catheterization With Stent, Prostate Surgery Additional Past Surgical History / Comment(s): AAA ENDOVASCULAR STENT GRAFT, LEFT RENAL ARTERY STENT Past Anesthesia/Blood Transfusion Reactions: Motion Sickness, Postoperative Nausea & Vomiting (PONV) Date of Last Stent Placement:: unknown Past Psychological History: No Psychological Hx Reported Smoking Status: Former smoker Past Alcohol Use History: None Reported Past Drug Use History: None Reported - Past Family History Mother Family Medical History: Unable to Obtain <Nora Sandoval - Last Filed: 03/11/22 22:03> General Exam Limitations: no limitations <Nora Sandoval - Last Filed: 03/11/22 22:03> Limitations: altered mental status General appearance: anxious, obtunded, in distress Head exam: Present: atraumatic, normocephalic, normal inspection Eye exam: Present: normal appearance, PERRL, EOMI. Absent: scleral icterus, conjunctival injection, periorbital swelling ENT exam: Present: normal exam, mucous membranes moist Neck exam: Present: normal inspection. Absent: tenderness, meningismus, lymphadenopathy Respiratory exam: Present: normal lung sounds bilaterally. Absent: respiratory distress, wheezes, rales, rhonchi, stridor Cardiovascular Exam: Present: regular rate, normal rhythm, normal heart sounds. Absent: systolic murmur, diastolic murmur, rubs, gallop, clicks GI/Abdominal exam: Present: soft, normal bowel sounds. Absent: distended, tenderness, guarding, rebound, rigid Extremities exam: Present: normal inspection, full ROM, normal capillary refill. Absent: tenderness, pedal edema, joint swelling, calf tenderness Back exam: Present: normal inspection Neurological exam: Present: alert, oriented X3, CN II-XII intact Psychiatric exam: Present: normal affect, normal mood Skin exam: Present: warm, dry, intact, normal color. Absent: rash <Asim Hassan - Last Filed: 03/12/22 00:18> - General Exam Comments Initial Comments: Patient becoming very pale and diaphoretic restless (Asim Hassan) Course <Nora Sandoval - Last Filed: 03/11/22 22:03> <Asim Hassan - Last Filed: 03/12/22 00:18> Vital Signs 03/11/22 03/11/22 03/11/22 20:09 20:55 22:57 Temperature 97.7 F 97.7 F Pulse Rate 55 L 86 Respiratory 16 16 Rate Blood Pressure 114/54 130/80 O2 Sat by Pulse 98 94 L Oximetry Fraction of 100 Inspired Oxygen (FIO2) 03/11/22 23:02 Temperature Pulse Rate Respiratory Rate Blood Pressure O2 Sat by Pulse Oximetry Fraction of 100 Inspired Oxygen (FIO2) - Reevaluation(s) Reevaluation #1: 03/11/22 21:49 Upon reevaluation, patient is noted to have lactic of 3.1 and leukocytosis. He will be given another liter of IV fluids and a reduced rate for a 30 mL/kg bolus given his cardiac history and CKD. CT of the abdomen and pelvis was ordered due to concerns for diverticulitis or kidney stone. Urinalysis was pending. Patient reports some improvement in pain initially but is now recurrent and patient is restless, irritable, and unable to find position of comfort and began pacing in room. States nausea has resolved. Additional pain medication ordered. (Nora Sandoval) Reevaluation #2: 03/12/22 00:08 Patient was reevaluated showing significant signs of distress restless and agitated and then pass out. Patient and was moved to trauma room to monitor showing ST elevation ventricular tachycardia Patient was then intubated for an consciousness EKG was obtained STEMI was paged out on EKG findings Spoke with cardiology who will come to see the patient Decision made for marshal patient began to lose vital signs including pressure and heart rate Likely secondary to initial presentation of abdominal pain with history of abdominal aneurysm 03/12/22 00:12 Patient was reassessed Patient was asystolic, ultrasound placed with no cardiac activity, no respirations noted and pupils are fixed and dilated Patient patient was pronounced at 2257 of 03/11/2022 (Asim Hassan) Reevaluation #3: 03/12/22 00:11 [place] with family at length regarding findings There questions are answered Family is at bedside (Asim Hassan) Reevaluation #4: 03/12/22 00:11 Medical examiners were of the patient's passing (Asim Hassan) EKG Findings - EKG Comments: EKG Findings:: EKG shows sinus tachycardia 103 IA 154 QRS 124 QTC 399 does a ppear to be anterior ST elevated ND <Asim Hassan - Last Filed: 03/12/22 00:18> Medical Decision Making - Lab Data Result diagrams: 03/11/22 20:55 03/11/22 20:55 <Nora Sandoval - Last Filed: 03/11/22 22:03> - Lab Data Result diagrams: 03/11/22 20:55 03/11/22 20:55 - Radiology Data Radiology results: report reviewed (Chest x-rays negative for acute disease), image reviewed <Asim Hassan - Last Filed: 03/12/22 00:18> - Medical Decision Making 76 male who originally presented to the emergency department today with abdominal pain. Patient then went into ventricular tachycardia ischemia related secondary to likely blood loss from aneurysm patient eventually as he went bradycardic with low blood pressure. Pronounced at 2257 (Asim Hassan) - Lab Data Lab Results 03/11/22 03/11/22 03/11/22 Range/Units 20:55 20:55 20:55 WBC 15.0 H (3.8-10.6) k/uL RBC 4.04 L (4.30-5.90) m/uL Hgb 12.3 L (13.0-17.5) gm/dL Hct 37.1 L (39.0-53.0) % MCV 91.7 (80.0-100.0) fL MCH 30.3 (25.0-35.0) pg MCHC 33.1 (31.0-37.0) g/dL RDW 13.6 (11.5-15.5) % Plt Count 158 (150-450) k/uL MPV 9.6 Neutrophils % 77 % Lymphocytes % 15 % Monocytes % 5 % Eosinophils % 2 % Basophils % 1 % Neutrophils # 11.5 H (1.3-7.7) k/uL Lymphocytes # 2.2 (1.0-4.8) k/uL Monocytes # 0.7 (0-1.0) k/uL Eosinophils # 0.3 (0-0.7) k/uL Basophils # 0.1 (0-0.2) k/uL PT 10.8 (9.0-12.0) sec INR 1.0 (<1.2) APTT 21.3 L (22.0-30.0) sec Sodium 137 (137-145) mmol/L Potassium 4.5 (3.5-5.1) mmol/L Chloride 107 (98-107) mmol/L Carbon Dioxide 24 (22-30) mmol/L Anion Gap 6 mmol/L BUN 27 H (9-20) mg/dL Creatinine 2.09 H (0.66-1.25) mg/dL Est GFR (CKD-EPI)AfAm 35 (>60 ml/min/1.73 sqM) Est GFR (CKD-EPI)NonAf 30 (>60 ml/min/1.73 sqM) Glucose 158 H (74-99) mg/dL Lactic Ac Sepsis Rflx Plasma Lactic Acid Topher (0.7-2.0) mmol/L Calcium 8.6 (8.4-10.2) mg/dL Total Bilirubin 0.4 (0.2-1.3) mg/dL AST 29 (17-59) U/L ALT 20 (4-49) U/L Alkaline Phosphatase 62 (38-126) U/L Total Protein 6.0 L (6.3-8.2) g/dL Albumin 3.4 L (3.5-5.0) g/dL Lipase 175 (23-300) U/L 03/11/22 03/11/22 Range/Units 20:55 21:45 WBC (3.8-10.6) k/uL RBC (4.30-5.90) m/uL Hgb (13.0-17.5) gm/dL Hct (39.0-53.0) % MCV (80.0-100.0) fL MCH (25.0-35.0) pg MCHC (31.0-37.0) g/dL RDW (11.5-15.5) % Plt Count (150-450) k/uL MPV Neutrophils % % Lymphocytes % % Monocytes % % Eosinophils % % Basophils % % Neutrophils # (1.3-7.7) k/uL Lymphocytes # (1.0-4.8) k/uL Monocytes # (0-1.0) k/uL Eosinophils # (0-0.7) k/uL Basophils # (0-0.2) k/uL PT (9.0-12.0) sec INR (<1.2) APTT (22.0-30.0) sec Sodium (137-145) mmol/L Potassium (3.5-5.1) mmol/L Chloride (98-107) mmol/L Carbon Dioxide (22-30) mmol/L Anion Gap mmol/L BUN (9-20) mg/dL Creatinine (0.66-1.25) mg/dL Est GFR (CKD-EPI)AfAm (>60 ml/min/1.73 sqM) Est GFR (CKD-EPI)NonAf (>60 ml/min/1.73 sqM) Glucose (74-99) mg/dL Lactic Ac Sepsis Rflx Y Plasma Lactic Acid Topher 3.1 H* (0.7-2.0) mmol/L Calcium (8.4-10.2) mg/dL Total Bilirubin (0.2-1.3) mg/dL AST (17-59) U/L ALT (4-49) U/L Alkaline Phosphatase (38-126) U/L Total Protein (6.3-8.2) g/dL Albumin (3.5-5.0) g/dL Lipase (23-300) U/L Critical Care Time Critical Care Time: Yes Total Critical Care Time: 31 <Asim Hassan - Last Filed: 03/12/22 00:18> Disposition <Nora Sandoval - Last Filed: 03/11/22 22:03> Is patient prescribed a controlled substance at d/c from ED?: No Time of Disposition: 23:00 Preliminary Cause of : Hypotension <Asim Hassan - Last Filed: 03/12/22 00:18> Clinical Impression: Intractable pain, Abdominal pain, Acute abdomen, STEMI (ST elevation myocardial infarction), Ventricular tachycardia, Cardiopulmonary arrest, Hypotension Disposition: Condition: Critical Referrals: Vivienne Elizabeth MD [Primary Care Provider] - 1-2 days
[2022-03-11 20:56] VITALS: BP 130/80; PULSE 86
[2022-03-11 21:27] LABS: Albumin 3.4 g/dL (3.5-5.0); Calcium 8.6 mg/dL (8.4-10.2); Potassium 4.5 mmol/L (3.5-5.1); Total Bilirubin 0.4 mg/dL (0.2-1.3)
[2022-03-11 21:31] LABS: Basophils # (A) 0.1 k/uL (0-0.2); Basophils % (A) 1 %; Eosinophils # (A) 0.3 k/uL (0-0.7); Eosinophils % (A) 2 %; HCT 37.1 % (39.0-53.0); HGB 12.3 gm/dL (13.0-17.5); Lymphocytes # (A) 2.2 k/uL (1.0-4.8); Lymphocytes % (A) 15 %; MCH 30.3 pg (25.0-35.0); MCHC 33.1 g/dL (31.0-37.0); MCV 91.7 fL (80.0-100.0); Mean Platelet Volume 9.6; Monocytes # (A) 0.7 k/uL (0-1.0); Monocytes % (A) 5 %; Neutrophils # (A) 11.5 k/uL (1.3-7.7); Neutrophils % (A) 77 %; Platelet Count 158 k/uL (150-450); Prothrombin Time 10.8 sec (9.0-12.0); RBC 4.04 m/uL (4.30-5.90); RDW 13.6 % (11.5-15.5)
[2022-03-11 21:53] LABS: Partial Thromboplastin Time 21.3 sec (22.0-30.0)
[2022-03-11] MEDS ORDERED: HYDROmorphone 1 MG/ML 1 ML SYRINGE IVP STA (22:02)
[2022-03-11] MEDS: DEXTROSE 5% IN WATER 100 ML with AMIODARONE 150 MG IV ONE ×2 (22:15→22:35)
[2022-03-11] MEDS ORDERED: PROPOFOL 10 MG/ML 20 ML VIAL IV ONE (22:52)
--- NOTE | 2022-03-11 23:14 | XR ---
EXAMINATION TYPE: XR chest 1V confirm line [facility] DATE OF EXAM: 03/11/2022 COMPARISON: 02/20/2020 HISTORY: Check tube placement TECHNIQUE: Single view FINDINGS: Heart is normal. Lungs are clear of infiltrate. No heart failure. There are no hilar masses . There are small linear density in the left midlung. There are chest leads. IMPRESSION: Minimal scarring in the left midlung. Normal heart. There is clearing of atelectasis to a large extent in the left lung base compared to old exam.
[2022-03-12 01:05] LABS: Creatine Kinase 75 U/L (55-170)
[2022-03-12 01:19] LABS: Troponin I <0.012 ng/mL (0.000-0.034)
== END 2022-03-12 02:58 | disposition expired ==
LOC: EC 20:06
DX: G89.4 Chronic pain syndrome (principal); I21.3 ST elevation (STEMI) myocardial infarction of unspecified site; I46.9 Cardiac arrest, cause unspecified; I25.10 Atherosclerotic heart disease of native coronary artery without angina pectoris; I25.2 Old myocardial infarction; E78.5 Hyperlipidemia, unspecified; Z88.6 Allergy status to analgesic agent; Z88.9 Allergy status to unspecified drugs, medicaments and biological substances; Z88.5 Allergy status to narcotic agent; Z79.82 Long term (current) use of aspirin; Z79.899 Other long term (current) drug therapy; Z79.891 Long term (current) use of opiate analgesic
CPT/HCPCS: 36415; 94002; 80053; 82550; 82553; 83605; 83690; 84484; 85025; 85610; 85730; 99291; 96374; 96375 ×2; 96361 ×2; J0282; J2405; J2704; J1170